=== PATIENT | female | born 1935 | race Caucasian/White ===

== ENCOUNTER 2016-05-12 20:19 | Inpatient (IN) | payer MEDICARE, OTHER ==
[2016-05-12] MEDS ORDERED: IPRATROPIUM/ALBUTEROL SULFATE 3 ML AMPUL.NEB NEB ONE (20:27)
[2016-05-12] MEDS ORDERED: 0.9 % SODIUM CHLORIDE 500 ML IV ONE (20:27)
[2016-05-12] MEDS ORDERED: methylPREDNISolone SOD SUCC 125 MG/2 ML VIAL IVP ONE (20:27)
[2016-05-12] MEDS: BUDESONIDE 0.5MG/2ML AMPUL.NEB NEB SCH (21:00)
[2016-05-12 21:12] LABS: BASOPHILS % 0.6 (0.0-1.5); LYMPHOCYTES # 2.1 # k/uL (0.6-4.0); MEAN CORPUSCULAR HEMOGLOBIN 32.9 pg (28.0-34.0); MONOCYTES # 0.4 # k/uL (0.0-0.9); MONOCYTES % 2.7 % (0.0-11.0); NEUTROPHILS # 13.5 # k/uL (1.4-7.7)
[2016-05-12 21:29] LABS: eGFR (African) 33; eGFR (Non-African) 27
--- NOTE | 2016-05-12 23:13 | Diagnostic Imaging Report ---
[facility] [id number] [facility].[address] [address] ~ ~ ~ ~ Report Submission Date: May 12, 2016 9:04:44 PM OCCUPATIONAL THERAPY ASST Patient ~ Study Name: JUSTIN GONZALEZ ~ Date: May 12, 2016 8:47:59 PM OCCUPATIONAL THERAPY ASST ~ Modality Type: CR Gender: F ~ Description: CHEST : 33 ~ Institution: [facility] Physician: DILCIA SIU ~ ~ ~ ~ Portable chest HISTORY: ~ Unresponsive and dyspnea FINDINGS: ~ Mild right basilar atelectasis, atherosclerotic aortic, hyperinflation, and calcified granulomas are observed. ~There is no evidence of confluent infiltrate or pleural effusion. ~Heart size is normal. ~ IMPRESSION: ~ Mild right basilar atelectasis, atherosclerosis, and hyperinflation. ~ Electronically signed on May 12, 2016 9:04:44 PM OCCUPATIONAL THERAPY ASST by: Corky REID
[2016-05-13 04:19] VITALS: BMI 15.7
[2016-05-13 06:10] LABS: APPEARANCE,URINE CLEAR (CLEAR); COLOR,URINE YELLOW (YELLOW); OCCULT BLOOD,URINE 3+ (NEGATIVE); PH URINE 6.5 (5.0 - 8.0); UROBILINOGEN URINE 0.2 Eu (0.2-1.0)
[2016-05-13] MEDS: IPRATROPIUM/ALBUTEROL SULFATE 3 ML AMPUL.NEB NEB SCH ×5 (07:30→21:45)
[2016-05-13] MEDS ORDERED: 0.9 % SODIUM CHLORIDE 1,000 ML IV SCH (07:30)
[2016-05-13] MEDS ORDERED: amLODIPine BESYLATE 5 MG TABLET PO ONE (07:36)
[2016-05-13] MEDS ORDERED: BISACODYL 5 MG TABLET.DR PO PRN (07:36)
[2016-05-13 07:51] LABS: MEAN CORPUSCULAR HEMOGLOBIN 32.5 pg (28.0-34.0)
[2016-05-13 07:52] LABS: BASOPHILS % 0.2 (0.0-1.5); EOSINOPHILS % 0.1 % (0.0-6.8); LYMPHOCYTES # 1.2 # k/uL (0.6-4.0); MONOCYTES # 0.1 # k/uL (0.0-0.9); MONOCYTES % 0.4 % (0.0-11.0); NEUTROPHILS # 11.8 # k/uL (1.4-7.7)
[2016-05-13] MEDS ORDERED: AZITHROMYCIN 500 MG in 0.9 % SODIUM CHLORIDE 250 ML IV SCH (08:00)
[2016-05-13] MEDS ORDERED: cefTRIAXone SODIUM 1 GM in 0.9 % SODIUM CHLORIDE 50 ML IV SCH (08:00)
[2016-05-13] MEDS ORDERED: methylPREDNISolone SOD SUCC 125 MG/2 ML VIAL ONE ×2 (08:09→15:46)
[2016-05-13] MEDS ORDERED: 0.9 % SODIUM CHLORIDE 250 ML IV ONE (08:09)
[2016-05-13] MEDS ORDERED: AZITHROMYCIN 500 MG VIAL IV ONE (08:09)
[2016-05-13] MEDS ORDERED: ENOXAPARIN SODIUM 30 MG/0.3 ML DISP.SYRIN SQ ONE (08:09)
[2016-05-13] MEDS ORDERED: SALINE FLUSH 10 ML DISP.SYRIN IVF ONE ×2 (08:10→15:46)
[2016-05-13] MEDS ORDERED: 0.9 % SODIUM CHLORIDE 1,000 ML IV ONE (08:14)
[2016-05-13] MEDS ORDERED: cefTRIAXone SODIUM ADVANTAGE 1 GM VIAL.PORT IV ONE (08:14)
[2016-05-13] MEDS ORDERED: NORMAL SALINE ADD-VANTAGE 50 ML IV ONE (08:14)
--- NOTE | 2016-05-13 08:18 | ED Physician Documentation ---
Dyspnea - HISTORIAN Historian: other ([facility] record) - HPI Stated Complaint: soa Chief Complaint: Dyspnea Onset: days ago (3) Duration: continues in ED Initiating Event: upper respiratory illness Context: infection Severity: moderate Exacerbated By: exertion Associated Symptoms: productive cough Further Comments: no - ROS CONST: no problems EYES/ENT: none GI/: none NEURO/PSYCH: denies: headache MS/SKIN/LYMPH: none - PAST HX Lung Disease: COPD Cardiac Disease: none PE Risk Factors: hypertension Other History: diabetes Type 2, other (anxiety) Immunizations: referred to PCP Allergies/Adverse Reactions: Allergies Allergy/AdvReac Type Severity Reaction Status Date / Time Penicillins Allergy Intermediate Verified 05/25/14 12:45 aspirin Allergy Verified 05/25/14 12:45 Home Medications: Ambulatory Orders Medication Instructions Recorded Acetaminophen [Tylenol] 650 mg PO Q4 05/03/12 Digoxin [Lanoxin] 125 mcg PO QD 05/03/12 Multivitamin [Bugs Bunny Vit Plus 1 each PO DAILY 05/03/12 Minerals] Bisacodyl [Dulcolax] 10 mg RC QD PRN 05/25/14 Blood Sugar Diagnostic, Drum 1 each MC BID 05/25/14 [Accu-Chek Compact Plus] Docusate Sodium [Colace] 1 cap PO BID 05/25/14 Ferrous Sulfate [Feosol] 325 mg PO BID 05/25/14 Insulin Glargine,Hum.rec.anlog 8 unit SQ HS 05/25/14 [Lantus] Opti-Vitamin [Ocuvite Tablet] 1 tab PO [id number] 05/25/14 Simvastatin [Zocor] 40 mg PO HS 05/25/14 Sodium Chloride 1,000 mg PO BID 05/25/14 amLODIPine BESYLATE [Norvasc] 5 mg PO 0900 05/25/14 Aspirin [Adult Low Dose Aspirin EC] 81 mg PO 05/13/16 Divalproex Sodium [Depakote 125 mg PO BID 05/13/16 Sprinkle] Megestrol Acetate [Megace] 10 ml PO TID 05/13/16 Ranitidine HCl [Zantac] 150 mg PO BID 05/13/16 - SOCIAL HX Smoking History: non-smoker Alcohol Use: none Drug Use: none - FAMILY HX Family History: no significant history - VITAL SIGNS Vital Signs: Vital Signs Temp Pulse Resp BP Pulse Ox 97.6 F 102 H 24 133/80 93 05/13/16 05:55 05/13/16 05:55 05/13/16 05:55 05/13/16 05:55 05/13/16 05:55 - REVIEWED ASSESSMENTS Nursing Assessment Reviewed: Yes Vitals Reviewed: Yes Progress - Results/Orders Results/Orders: see orders - Progress Progress: improved with nebulizer txs in er Critical Care Note - Critical Care Note Total Time (mins): 0 ED Results Lab/Radiology - Lab Results Lab Results: Lab Results 05/13/16 05/12/16 05/12/16 01:33 21:04 21:04 WBC RBC Hgb Hct MCV MCH MCHC RDW Plt Count Neut % (Auto) Lymph % (Auto) [place] % (Auto) Eos % (Auto) Baso % (Auto) Neut # Lymph # [place] # Eos # Baso # Reactive Lymphs % Reactive Lymphs # PT 11.2 Seconds Seconds (9.7-11.5) INR 1.1 (0.9-1.1) APTT 26.3 Seconds Seconds (24.5-32.8) Sodium Potassium Chloride Carbon Dioxide BUN Creatinine Est GFR ( Amer) Est GFR (Non-Af Amer) Glucose Calcium Total Bilirubin AST ALT Alkaline Phosphatase Troponin I 0.05 ng/mL ng/mL (0.03-0.06) NT-Pro-B Natriuret Pep 1188.9 pg/mL H pg/mL (15.0-450.0) Total Protein Albumin Urine Color Yellow (YELLOW) Urine Appearance Clear (CLEAR) Urine pH 6.5 (5.0 - 8.0) Ur Specific [place] 1.020 (1.010-1.030) Urine Protein 3+ mg/dL H mg/dL (NEGATIVE) Urine Ketones Trace mg/dL H mg/dL (NEGATIVE) Urine Occult Blood 3+ H (NEGATIVE) Urine Nitrite Positive H (NEGATIVE) Urine Bilirubin Negative (NEGATIVE) Urine Urobilinogen 0.2 Eu Eu (0.2-1.0) Ur Leukocyte Esterase Negative (NEGATIVE) Urine Glucose Negative mg/dL mg/dL (NEGATIVE) 05/12/16 05/12/16 20:28 20:28 WBC 16.50 K/ul H K/ul (4.00-12.00) RBC 3.54 M/ul L M/ul (3.90-5.20) Hgb 11.6 g/dL L g/dL (12.0-16.0) Hct 36.0 % % (34.5-46.5) MCV 101.8 fl H fl (80.0-100.0) MCH 32.9 pg pg (28.0-34.0) MCHC 32.3 g/dL g/dL (30.0-36.0) RDW 13.4 % % (11.3-14.3) Plt Count 397 K/mm3 K/mm3 (130-400) Neut % (Auto) 81.8 % H % (39.0-79.0) Lymph % (Auto) 12.9 % L % (16.0-50.0) [place] % (Auto) 2.7 % % (0.0-11.0) Eos % (Auto) 1.0 % % (0.0-6.8) Baso % (Auto) 0.6 (0.0-1.5) Neut # 13.5 # k/uL H # k/uL (1.4-7.7) Lymph # 2.1 # k/uL # k/uL (0.6-4.0) [place] # 0.4 # k/uL # k/uL (0.0-0.9) Eos # 0.2 # k/uL # k/uL (0.0-0.6) Baso # 0.1 # k/uL # k/uL (0.0-0.5) Reactive Lymphs % 1.0 % % (0.0-5.0) Reactive Lymphs # 0.2 # k/uL # k/uL (0.0-0.8) PT INR APTT Sodium 157 mmol/L H mmol/L (136-145) Potassium 3.4 mmol/L L mmol/L (3.5-5.0) Chloride 130 mmol/L H mmol/L (98-110) Carbon Dioxide 22 mmol/L mmol/L (20-32) BUN 46 mg/dL H mg/dL (10-26) Creatinine 1.9 mg/dL H mg/dL (0.4-1.5) Est GFR ( Amer) 33 L (60 - ) Est GFR (Non-Af Amer) 27 L (60 - ) Glucose 143 mg/dL H mg/dL (70-99) Calcium 11.5 mg/dL H mg/dL (8.5-10.5) Total Bilirubin 0.2 mg/dL mg/dL (0.2-1.2) AST 39 U/L U/L (0-41) ALT 42 U/L U/L (0-45) Alkaline Phosphatase 67 U/L U/L (46-116) Troponin I NT-Pro-B Natriuret Pep Total Protein 8.9 g/dL H g/dL (6.0-8.5) Albumin 4.3 g/dL g/dL (3.0-5.5) Urine Color Urine Appearance Urine pH Ur Specific [place] Urine Protein Urine Ketones Urine Occult Blood Urine Nitrite Urine Bilirubin Urine Urobilinogen Ur Leukocyte Esterase Urine Glucose - Radiology Radiology Impressions: cxr shows right basilar infiltrate - Orders Orders: ED Orders Category Date Time Status Activity as ordered D Care 05/13/16 07:36 Active Assess pulse oximetry Q1-2 Care 05/13/16 07:36 Active Continuous EKG monitoring Q1H Care 05/13/16 07:36 Active Document Bowel Movement Q8H Care 05/13/16 07:[address] Sanchez NOW Care 05/13/16 07:36 Ordered Dominguez [Urinary catheterization] 1T Care 05/12/16 23:06 Active Further Nursing Orders 1T Care 05/13/16 07:36 Active Inpatient Telemetry NOW Care 05/13/16 07:36 Ordered Obtain weight DAILY@0500 Care 05/13/16 07:36 Active Turn, Cough, and Deep Breathe Q2 Care 05/13/16 07:36 Active Vital Signs Q4 Care 05/13/16 07:36 Active No Concentrated Sweets Diet 05/13/16 Breakfast Ordered Regular Diet 05/13/16 Breakfast Ordered CHEST 1 VIEW [RAD] Routine Exams 05/12/16 Completed BLOOD CULTURE Routine Lab 05/12/16 20:28 Received BNP [NT-proBNP] Routine Lab 05/12/16 21:04 Completed CBC/PLATELET/DIFF Routine Lab 05/12/16 20:28 Completed CMP Routine Lab 05/12/16 20:28 Completed PT-INR Routine Lab 05/12/16 21:04 Completed PTT Routine Lab 05/12/16 21:04 Completed TROPONIN I (cTnI) Routine Lab 05/12/16 21:04 Completed 0.9 % Sodium Chloride [Normal Saline] 500 ml Med 05/12/16 20:27 Discontinued IV NOW Acetaminophen [Tylenol] Med 05/13/16 07:36 Ordered 650 mg PO Q6H PRN Azithromycin [Zithromax] 500 mg Med 05/13/16 07:36 Ordered 0.9 % Sodium Chloride [Sodium Chloride] 250 ml IV Q24H Bisacodyl [Dulcolax] Med 05/13/16 07:36 Ordered 10 mg PO DAILY PRN Budesonide [Pulmicort] Med 05/12/16 21:00 Ordered 0.5 mg NEB BID Budesonide [Pulmicort] Med 05/13/16 09:00 Ordered 0.5 mg NEB BID Buspirone HCl [Buspar] Med 05/13/16 09:00 Ordered 5 mg PO BID Cyclobenzaprine HCl [Flexeril] Med 05/13/16 09:00 Ordered 5 mg PO DAILY Digoxin [Lanoxin] Med 05/13/16 12:00 Ordered 125 mcg PO [id number] Docusate Sodium [Colace] Med 05/13/16 09:00 Ordered 100 mg PO BID Enoxaparin Sodium [Lovenox] Med 05/13/16 07:36 Ordered 30 mg SQ QD Ferrous Sulfate [Feosol] Med 05/13/16 11:00 Ordered 325 mg PO 1100 Ipratropium/Albuterol Sulfate [Duoneb] Med 05/12/16 20:27 Discontinued 3 ml NEB NOW ONE Ipratropium/Albuterol Sulfate [Duoneb] Med 05/13/16 07:36 Ordered 3 ml NEB Q4 Losartan Potassium [Cozaar] Med 05/13/16 09:00 Ordered 100 mg PO DAILY Magnesium Hydroxide [Milk of Magnesia] Med 05/13/16 09:00 Ordered 2,400 mg PO BID Metformin HCl [Glucophage] Med 05/13/16 07:36 Ordered 500 mg PO [id number] Multivitamin [Tab-A-Ermias] Med 05/13/16 09:00 Ordered 1 each PO DAILY Potassium Chloride [Klor-Con M20] Med 05/13/16 09:00 Ordered 20 meq PO BID Simvastatin [Zocor] Med 05/13/16 21:00 Ordered 40 mg PO HS Vit A,C & E/Lutein/Minerals [Ocuvite with Lutein Tablet Med 05/13/16 09:00 Ordered ] 1 each PO DAILY amLODIPine BESYLATE [Norvasc] Med 05/13/16 07:36 Once 5 mg PO NOW ONE cefTRIAXone SODIUM [Rocephin] 1 gm Med 05/13/16 07:36 Ordered 0.9 % Sodium Chloride [Sodium Chloride] 50 ml IV QD fentaNYL 12 MCG [Duragesic] Med 05/13/16 09:00 Ordered 1 each TD Q72 hydrOXYzine HCL [Vistaril] Med 05/13/16 09:00 Ordered 25 mg IM BID methylPREDNISolone SOD SUCC [Solu-MEDROL] Med 05/12/16 20:27 Discontinued 125 mg IVP NOW ONE methylPREDNISolone SOD SUCC [Solu-MEDROL] Med 05/13/16 09:00 Ordered 125 mg IVP Q12 Resuscitation Status Routine Oth 05/13/16 07:36 Ordered Oxygen Daily Oxygen 05/13/16 07:36 Ordered EKG WITH COMPARISON Routine Ther 05/12/16 Completed Transfer Routine Transfer 05/13/16 Completed Dyspnea Physical Exam - EXAM General Appearance: alert, moderate distress EENT: eye inspection normal, ENT inspection normal, pharynx normal, dry mucous membranes Neck: nml inspection Respiratory: respiratory distress, decreased air movement, rales CVS: reg. rate & rhythm Abdomen: non-tender, no organomegaly Skin: color nml, no rash Extremities: non-tender, normal range of motion, no evidence of injury Neuro/Psych: weakness Discharge Clincal Impression: Pneumonia Qualifiers: Pneumonia type: due to unspecified organism Laterality: right Lung location: lower lobe of lung Qualified Code(s): J18.1 - Lobar pneumonia, unspecified organism Home Medications: Ambulatory Orders Acetaminophen [Tylenol] 650 mg PO Q4 05/03/12 Digoxin [Lanoxin] 125 mcg PO QD 05/03/12 Multivitamin [Bugs Bunny Vit Plus Minerals] 1 each PO DAILY 05/03/12 Bisacodyl [Dulcolax] 10 mg RC QD PRN 05/25/14 Blood Sugar Diagnostic, Drum [Accu-Chek Compact Plus] 1 each MC BID 05/25/14 Docusate Sodium [Colace] 1 cap PO BID 05/25/14 Ferrous Sulfate [Feosol] 325 mg PO BID 05/25/14 Insulin Glargine,Hum.rec.anlog [Lantus] 8 unit SQ HS 05/25/14 Opti-Vitamin [Ocuvite Tablet] 1 tab PO [id number] 05/25/14 Simvastatin [Zocor] 40 mg PO HS 05/25/14 Sodium Chloride 1,000 mg PO BID 05/25/14 amLODIPine BESYLATE [Norvasc] 5 mg PO 0900 05/25/14 Aspirin [Adult Low Dose Aspirin EC] 81 mg PO 05/13/16 Divalproex Sodium [Depakote Sprinkle] 125 mg PO BID 05/13/16 Megestrol Acetate [Megace] 10 ml PO TID 05/13/16 Ranitidine HCl [Zantac] 150 mg PO BID 05/13/16 Comments: case discussed with Dr. Sanchez, accepts pt. for admission Condition: Stable Disposition: ADMITTED INPATIENT Decision to Admit: [id number] Decision Time: 02:10
[2016-05-13] MEDS: BUSPIRONE HCL 5 MG TABLET PO SCH ×2 (08:32→20:28)
[2016-05-13] MEDS: DOCUSATE SODIUM 100 MG CAPSULE PO SCH ×2 (08:32→20:28)
[2016-05-13] MEDS: MAGNESIUM HYDROXIDE 400 MG/5 ML 30ML UDC PO SCH ×2 (08:33→20:29)
[2016-05-13] MEDS: CYCLOBENZAPRINE HCL 5 MG TABLET PO SCH (08:33)
[2016-05-13] MEDS: ENOXAPARIN SODIUM 30 MG/0.3 ML DISP.SYRIN SQ SCH (08:33)
[2016-05-13] MEDS: POTASSIUM CHLORIDE 20 MEQ TABLET.ER PO SCH ×2 (08:33→20:28)
[2016-05-13] MEDS: LOSARTAN POTASSIUM 50 MG TABLET PO SCH (08:33)
[2016-05-13] MEDS: SALINE FLUSH 10 ML DISP.SYRIN IV SCH ×2 (08:34→20:29)
[2016-05-13] MEDS: BUDESONIDE 0.5MG/2ML AMPUL.NEB NEB SCH ×4 (08:35→21:48)
[2016-05-13] MEDS: [UNRECOGNIZED DRUG - OTHER] PO SCH (08:35)
[2016-05-13] MEDS: MULTIVITAMIN 1 EACH TABLET PO SCH (08:36)
[2016-05-13] MEDS: cefTRIAXone SODIUM 1 GM in 0.9 % SODIUM CHLORIDE 50 ML IV SCH (08:36)
[2016-05-13] MEDS: methylPREDNISolone SOD SUCC 125 MG/2 ML VIAL IVP SCH ×2 (09:00→21:48)
[2016-05-13] MEDS: AZITHROMYCIN 500 MG in 0.9 % SODIUM CHLORIDE 250 ML IV SCH (09:33)
[2016-05-13] MEDS: hydrOXYzine HCL 50 MG/ML VIAL IM SCH ×2 (09:40→20:30)
--- NOTE | 2016-05-13 09:56 | History and Physical Report ---
History of Present Illnes - History of Present Illness Reason for Visit: increase lethergy, dyspnea History of Present Illness: Patient is an 80-year-old white female [facility]. Over the last 48 hours patient has been taking and appeared to be having some increasing respiratory distress and lathery. Patient's SaO2 dropped down into the mid 80s and was difficult to get up over 90. Patient doesn't having some wheezing. Patient was having fever and chills. Was felt that patient may be developing pneumonia and was subsequently transferred to the ED. In the emergency department. Patient was felt to have an exacerbation of her COPD with possible bronchitis and was subsequently admitted to the hospital for further evaluation and treatment. - Past Medical History Cardiac: AFIB, HTN Pulmonary: COPD GENERAL SUPERVISOR: Dementia (alzheimer's) Gastrointestinal: Diverticulosis Heme/Onc: Anemia NOS Musculoskeletal: Chronic low back pain - Past Surgical History Past Surgical History: Hysterectomy, Other (BTL, lumbar disectomy, C section x 2 ) - Past Family History Mother Family History: (unknown) Father Family History: (unknown) - Past Social History Smoke: No Occupation: retired Alcohol: None Drugs: None Lives: Senior Care Domestic Violence: Negative - Health Maintenance Health Maintenance: Influenza Vaccine, Pneumococcal Vaccine. denies: Cholesterol Influenza Vaccine: Current for this Influenza Season Pneumonia Vaccine: Yes Resuscitation Status: Resusciation Status Resuscitation Status Do Not Resuscitate - Unable to Obtain History Unable to Obtain: Yes Review of Systems - Review of Systems Constitutional: Fever, Chills, Weakness Eyes: negative: pain, vision change ENT: negative: Ear Pain, Ear Discharge, Nose Discharge, Throat Swelling Respiratory: SOB with Excertion. negative: Cough, Shortness of Breath, Sputum, Wheezing Cardiovascular: negative: Chest Pain, Palpitations, Edema Gastrointestinal: negative: Nausea, Vomiting, Abdominal Pain, Diarrhea, Constipation, Melena, Hematochezia Genitourinary: Frequency, Incontinence. negative: Hematuria Musculoskeletal: Back Pain Skin: negative: Rash, Lesions Neurological: Other (increas lethergy). negative: Weakness, Numbness - Medications/Allergies Allergies/Adverse Reactions: Allergies Allergy/AdvReac Type Severity Reaction Status Date / Time Penicillins Allergy Intermediate Verified 05/25/14 12:45 aspirin Allergy Verified 05/25/14 12:45 Home Medications: Home Medications Aspirin [Adult Low Dose Aspirin EC] 81 mg PO 05/13/16 Divalproex Sodium [Depakote Sprinkle] 125 mg PO BID 05/13/16 Megestrol Acetate [Megace] 10 ml PO TID 05/13/16 Ranitidine HCl [Zantac] 150 mg PO BID 05/13/16 Current Inpatient Medications: Current Inpatient Medications Acetaminophen (Tylenol) 650 mg PO Q6H PRN PRN Reason: Fever >101 Al Hydroxide/Mg Hydroxide (Milk Of Magnesia) 2,400 mg PO BID [facility] Last Admin: 05/13/16 08:33 Dose: Not Given Albuterol/Ipratropium (Duoneb) 3 ml NEB Q4 [facility] Amlodipine Besylate (Norvasc) 5 mg PO NOW ONE Stop: 05/13/16 07:37 Last Admin: 05/13/16 08:35 Dose: Not Given Bisacodyl (Dulcolax) 10 mg PO DAILY PRN PRN Reason: Constipation Budesonide (Pulmicort) 0.5 mg NEB BID [facility] Last Admin: 05/12/16 21:00 Dose: 0.5 mg Budesonide (Pulmicort) 0.5 mg NEB BID [facility] Last Admin: 05/13/16 08:35 Dose: Not Given Buspirone HCl (Buspar) 5 mg PO BID [facility] Last Admin: 05/13/16 08:32 Dose: Not Given Cyclobenzaprine HCl (Flexeril) 5 mg PO DAILY [facility] Last Admin: 05/13/16 08:33 Dose: Not Given Digoxin (Lanoxin) 125 mcg PO [id number] [facility] Docusate Sodium (Colace) 100 mg PO BID [facility] Last Admin: 05/13/16 08:32 Dose: Not Given Enoxaparin Sodium (Lovenox) 30 mg SQ QD [facility] Stop: 05/26/16 07:37 Last Admin: 05/13/16 08:33 Dose: 30 mg Fentanyl (Duragesic) 1 each TD Q72 [facility] Ferrous Sulfate (Feosol) 325 mg PO 1100 [facility] Hydroxyzine HCl (Vistaril) 25 mg IM BID [facility] Last Admin: 05/13/16 09:40 Dose: 25 mg Sodium Chloride (Normal Saline) 1,000 mls @ 125 mls/hr IV .Q10H [facility] Azithromycin 500 mg/ Sodium (Chloride) 250 mls @ 125 mls/hr IV Q24H [facility] Stop: 05/23/16 07:35 Last Admin: 05/13/16 09:33 Dose: 125 mls/hr Ceftriaxone Sodium 1 gm/ (Sodium Chloride) 50 mls @ 100 mls/hr IV QD [facility] Last Admin: 05/13/16 08:36 Dose: 100 mls/hr Insulin Human Regular (Humulin R) 0 - 12 unit SQ CHEMQID [facility] PRN Reason: Protocol Losartan Potassium (Cozaar) 100 mg PO DAILY [facility] Last Admin: 05/13/16 08:33 Dose: Not Given Metformin HCl (Glucophage) 500 mg PO [id number] [facility] Last Admin: 05/13/16 08:32 Dose: Not Given Methylprednisolone Sodium Succinate (Solu-Medrol) 125 mg IVP Q12 [facility] Miscellaneous (Chem Sticks) 1 each MC CHEMQID [facility] Last Admin: 05/13/16 07:40 Dose: 1 each Miscellaneous (Chem Sticks) 1 each CHEMX2 [facility] Last Admin: 05/13/16 08:31 Dose: Not Given Multivitamins (Tab-A-Ermias) 1 each PO DAILY [facility] Last Admin: 05/13/16 08:36 Dose: Not Given Multivitamins/Minerals (Ocuvite With Lutein Tablet) 1 each PO DAILY [facility] Last Admin: 05/13/16 08:35 Dose: Not Given Potassium Chloride (Klor-Con M20) 20 meq PO BID [facility] Last Admin: 05/13/16 08:33 Dose: Not Given Simvastatin (Zocor) 40 mg PO HS [facility] Sodium Chloride (Normal Saline Flush) 3 ml IV BID [facility] Last Admin: 05/13/16 08:34 Dose: 3 ml Exam - Exam Vital Signs: Vital Signs (72 hours) 05/13/16 05/13/16 05/13/16 02:13 02:32 05:55 Temperature 97.7 F 97.6 F Pulse Rate [ 105 H 107 H 102 H Pulse ox] Respiratory 26 H 24 24 Rate Blood Pressure 153/82 143/87 133/80 [Left Arm] O2 Sat by Pulse 95 95 93 Oximetry General: No acute distress, Other (did open eyes to verbal stimuli). No: Alert , Oriented to Person, Oriented to Place, Oriented to Time, Cooperative HEENT: Atraumatic, Nose Mucous membr. moist/[place], Edentulous. No: Mouth Mucous membr. moist/[place] Neck: Normal Range of Motion. No: Stridor, Rigidity, Lymphadenopathy Carotids: WNL Thyroid: WNL Lungs: Clear to auscultation, Normal air movement, Speaks full Sentences, Respiratory Distress. No: Wheezes, Rales, Rhonchi Cardiovascular: Normal S1, Normal S2, Regularly Irregular, Atrial Fib (?) Murmur: Systolic Murmur Heart Murmur Grade: I Abdomen: Normal bowel sounds, Soft, No tenderness, No hepatospenomegaly, No masses. No: Distended Integumentary: Normal, [place], Warm, Dry Extremities: No clubbing, No cyanosis, No edema Neurological: Strength Equal Bilat, Normal tone, Sensation intact, Cranial nerves 3-12 NL. No: Normal speech Psych/Mental Status: No: Mental status NL, Mood NL, Appropriate Affect, Intact Judgment - Laboratory Results Laboratory Results: Laboratory Results 05/13/16 05/13/16 07:35 07:35 WBC 13.18 H RBC 3.42 L Hgb 11.1 L Hct 35.2 MCV 103.0 H MCH 32.5 MCHC 31.6 RDW 13.5 Plt Count 385 Neut % (Auto) 89.7 H Lymph % (Auto) 8.9 L [place] % (Auto) 0.4 Eos % (Auto) 0.1 Baso % (Auto) 0.2 Neut # 11.8 H Lymph # 1.2 [place] # 0.1 Eos # 0.0 Baso # 0.0 Reactive Lymphs % 0.7 Reactive Lymphs # 0.1 Sodium 159 H Potassium 3.7 Chloride 126 H Carbon Dioxide 22 BUN 56 H Creatinine 1.8 H Estimated Creat Clear 20 Est GFR ( Amer) 35 L Est GFR (Non-Af Amer) 29 L Glucose 224 H Calcium 10.4 Total Bilirubin 0.2 AST 61 H ALT 57 H Alkaline Phosphatase 65 Total Protein 8.5 Albumin 4.1 Assessment/Plan - Assessment/Plan (1) COPD exacerbation Status: Acute Current Visit: Yes Assessment: Patient will be started on IV steroids. Patient will be given high flow neb treatments. (2) Mental status change Status: Acute Current Visit: Yes Assessment: Patient was lethargic than baseline. Probably related to her current medical problems. (3) Alzheimer's dementia Status: Acute Current Visit: Yes Assessment: Stable we'll continue with home medication (4) Anemia Status: Chronic Current Visit: Yes Qualifiers: Anemia type: iron deficiency Assessment: Will monitor patient's hemoglobin and hematocrit (5) Atrial fibrillation Status: Chronic Current Visit: Yes Assessment: Appears to be stable at this time. We'll continue with current home medications. Rate is well controlled at this time. (6) Essential hypertension Status: Chronic Current Visit: Yes Assessment: We'll continue with home medications. VTE Assessment - RISK FACTOR SCORE VTE RISK FACTOR SCORES: AGE OVER 60 YEARS, ACUTE INFECTION OTHER THEN SEPSIS, ANTICIPATED BED CONFINEMENT OR IMMOBILIZATION > 24 HOURS
--- NOTE | 2016-05-13 13:10 | Diagnostic Imaging Report ---
[facility] [address] [facility] [address] [place], [place]. [address] ~ ~ ~ ~ Report Submission Date: May 13, 2016 8:21:44 AM MERCHANDISING REPRESENTATIVE Patient ~ Study Name: JUSTIN GONZALEZ ~ Date: May 13, 2016 7:58:55 AM MERCHANDISING REPRESENTATIVE ~ Modality Type: CR Gender: F ~ Description: CHEST : 34 ~ Institution: [facility] Physician: KEIKO AREVALO MD ~ ~ ~ ~ HISTORY: ~ 80-year-old female with chest congestion and fever. COMPARISON: Chest x-ray dated 05/12/2016. TECHNIQUE: Single portable AP view of the chest was performed. FINDINGS: No pneumothorax, new infiltrates, or pulmonary edema. ~The lungs are hyperexpanded. ~The heart is not enlarged. IMPRESSION: No acute intrathoracic process. ~ Electronically signed on May 13, 2016 8:21:44 AM MERCHANDISING REPRESENTATIVE by: Fortino REID
[2016-05-13] MEDS: FERROUS SULFATE 325 MG TABLET PO SCH (14:12)
[2016-05-13] MEDS: INSULIN REGULAR, HUMAN 100 UNIT/ML 3ML VIAL SQ SCH ×3 (14:12→20:34)
[2016-05-13] MEDS: DIGOXIN 125 MCG TABLET PO SCH (14:13)
[2016-05-13] MEDS: ACETAMINOPHEN 325 MG TABLET PO PRN (14:15)
[2016-05-13] MEDS: fentaNYL 12 MCG 1 EACH PATCH.TD72 TD SCH (16:43)
[2016-05-13] MEDS ORDERED: INSULIN REGULAR, HUMAN 100 UNIT/ML 3ML VIAL ONE (20:33)
[2016-05-13] MEDS: SIMVASTATIN 40 MG TABLET PO SCH (20:34)
[2016-05-14] MEDS: DEXTROSE 5 % IN WATER 1,000 ML IV SCH ×3 (02:03→17:20)
[2016-05-14] MEDS: IPRATROPIUM/ALBUTEROL SULFATE 3 ML AMPUL.NEB NEB SCH ×6 (04:33→21:57)
[2016-05-14] MEDS ORDERED: ENOXAPARIN SODIUM 30 MG/0.3 ML DISP.SYRIN SQ ONE (04:45)
[2016-05-14] MEDS ORDERED: SALINE FLUSH 10 ML DISP.SYRIN IVF ONE ×2 (04:46→07:44)
[2016-05-14] MEDS ORDERED: methylPREDNISolone SOD SUCC 125 MG/2 ML VIAL ONE (04:46)
[2016-05-14 06:53] LABS: BASOPHILS % 0.2 (0.0-1.5); EOSINOPHILS % 0.1 % (0.0-6.8); LYMPHOCYTES # 1.2 # k/uL (0.6-4.0); MEAN CORPUSCULAR HEMOGLOBIN 33.5 pg (28.0-34.0); MONOCYTES # 0.1 # k/uL (0.0-0.9); MONOCYTES % 0.9 % (0.0-11.0)
[2016-05-14] MEDS ORDERED: AZITHROMYCIN 500 MG VIAL IV ONE (08:06)
[2016-05-14] MEDS ORDERED: 0.9 % SODIUM CHLORIDE 250 ML IV ONE (08:06)
[2016-05-14] MEDS ORDERED: cefTRIAXone SODIUM ADVANTAGE 1 GM VIAL.PORT IV ONE (08:07)
[2016-05-14] MEDS ORDERED: NORMAL SALINE ADD-VANTAGE 50 ML IV ONE (08:07)
[2016-05-14] MEDS: CYCLOBENZAPRINE HCL 5 MG TABLET PO SCH (08:12)
[2016-05-14] MEDS: LOSARTAN POTASSIUM 50 MG TABLET PO SCH (08:12)
[2016-05-14] MEDS: POTASSIUM CHLORIDE 20 MEQ TABLET.ER PO SCH ×2 (08:12→21:07)
[2016-05-14] MEDS: DOCUSATE SODIUM 100 MG CAPSULE PO SCH ×2 (08:12→21:07)
[2016-05-14] MEDS: BUSPIRONE HCL 5 MG TABLET PO SCH ×2 (08:12→21:07)
[2016-05-14] MEDS: ENOXAPARIN SODIUM 30 MG/0.3 ML DISP.SYRIN SQ SCH (08:12)
[2016-05-14] MEDS: SALINE FLUSH 10 ML DISP.SYRIN IV SCH ×2 (08:13→21:08)
[2016-05-14] MEDS: [UNRECOGNIZED DRUG - OTHER] PO SCH (08:13)
[2016-05-14] MEDS: MAGNESIUM HYDROXIDE 400 MG/5 ML 30ML UDC PO SCH ×2 (08:13→21:07)
[2016-05-14] MEDS: cefTRIAXone SODIUM 1 GM in 0.9 % SODIUM CHLORIDE 50 ML IV SCH (08:14)
[2016-05-14] MEDS: hydrOXYzine HCL 50 MG/ML VIAL IM SCH ×2 (08:14→21:08)
[2016-05-14] MEDS: MULTIVITAMIN 1 EACH TABLET PO SCH (08:14)
[2016-05-14] MEDS: INSULIN REGULAR, HUMAN 100 UNIT/ML 3ML VIAL SQ SCH ×4 (08:16→21:12)
[2016-05-14] MEDS: methylPREDNISolone SOD SUCC 40 MG/ML VIAL IVP SCH ×2 (08:26→22:07)
[2016-05-14 08:31] LABS: DIGOXIN LEVEL 0.7 ng/mL (0.5-2.0); VALPROIC ACID LEVEL 3.6 ug/mL (50.0-100.0)
[2016-05-14] MEDS: BUDESONIDE 0.5MG/2ML AMPUL.NEB NEB SCH ×2 (09:00→22:08)
[2016-05-14] MEDS: FERROUS SULFATE 325 MG TABLET PO SCH (11:25)
[2016-05-14] MEDS: AZITHROMYCIN 500 MG in 0.9 % SODIUM CHLORIDE 250 ML IV SCH (11:26)
[2016-05-14] MEDS: DIGOXIN 125 MCG TABLET PO SCH (11:28)
--- NOTE | 2016-05-14 20:04 | Inpatient Progress Note ---
Subjective - Required Recertification Statement I anticipate X number of days because-include discharge plan: 2 days - Review of Systems Events since last encounter: patient is not as lethargic as she was yesterday. Patient is starting to take oral intake. Patient does not indicate that she's having any pain at this time. patient did run a low-grade fever 100.7 last night. Patient is afebrile at this time. Patient has had a mild productive sounding cough. Objective - Exam Vitals and I&O: Vital Signs Temp 97.3 F L 05/14/16 14:00 Pulse 73 05/14/16 18:00 Resp 18 05/14/16 14:00 BP 132/67 05/14/16 14:00 Pulse Ox 95 05/14/16 14:00 Intake & Output 05/13/16 05/14/16 05/14/16 23:59 11:59 23:59 Intake Total 330 420 Output Total 100 300 Balance 230 -300 420 Intake: Oral 330 420 Output: Urine 100 300 Other: Voiding Method Indwelling Catheter Indwelling Catheter # Bowel Movements 1 General: Alert (not at baseline), Cooperative, No acute distress. No: Oriented to Person, Oriented to Place, Oriented to Time Neck: Supple, No JVD Lungs: Normal air movement, Rales (R>L), Rhonchi (R>L) Cardiovascular: Normal S1, Normal S2, Irregularly Irregular Abdomen: Normal bowel sounds, Soft, No tenderness Skin: Normal, [place], Warm, Dry Neurological: Normal tone Psych/Mental Status: No: Mental status NL, Intact Judgment - Results Results: Laboratory Results WBC 15.60 K/ul (4.00-12.00) H 05/14/16 06:10 RBC 3.52 M/ul (3.90-5.20) L 05/14/16 06:10 Hgb 11.8 g/dL (12.0-16.0) L 05/14/16 06:10 Hct 36.5 % (34.5-46.5) 05/14/16 06:10 MCV 103.5 fl (80.0-100.0) H 05/14/16 06:10 MCH 33.5 pg (28.0-34.0) 05/14/16 06:10 MCHC 32.4 g/dL (30.0-36.0) 05/14/16 06:10 RDW 13.4 % (11.3-14.3) 05/14/16 06:10 Plt Count 468 K/mm3 (130-400) H 05/14/16 06:10 Neut % (Auto) 90.0 % (39.0-79.0) H 05/14/16 06:10 Lymph % (Auto) 8.0 % (16.0-50.0) L 05/14/16 06:10 [place] % (Auto) 0.9 % (0.0-11.0) 05/14/16 06:10 Eos % (Auto) 0.1 % (0.0-6.8) 05/14/16 06:10 Baso % (Auto) 0.2 (0.0-1.5) 05/14/16 06:10 Neut # 14.0 # k/uL (1.4-7.7) H 05/14/16 06:10 Lymph # 1.2 # k/uL (0.6-4.0) 05/14/16 06:10 [place] # 0.1 # k/uL (0.0-0.9) 05/14/16 06:10 Eos # 0.0 # k/uL (0.0-0.6) 05/14/16 06:10 Baso # 0.0 # k/uL (0.0-0.5) 05/14/16 06:10 Reactive Lymphs % 0.9 % (0.0-5.0) 05/14/16 06:10 Reactive Lymphs # 0.1 # k/uL (0.0-0.8) 05/14/16 06:10 PT 11.2 Seconds (9.7-11.5) 05/12/16 21:04 INR 1.1 (0.9-1.1) 05/12/16 21:04 APTT 26.3 Seconds (24.5-32.8) 05/12/16 21:04 Sodium 155 mmol/L (136-145) H 05/14/16 19:04 Potassium 3.8 mmol/L (3.5-5.0) 05/14/16 19:04 Chloride 130 mmol/L (98-110) H 05/14/16 19:04 Carbon Dioxide 18 mmol/L (20-32) L 05/14/16 19:04 BUN 84 mg/dL (10-26) H 05/14/16 19:04 Creatinine 2.3 mg/dL (0.4-1.5) H 05/14/16 19:04 Estimated Creat Clear 16 05/14/16 19:04 Est GFR ( Amer) 26 (60-) L 05/14/16 19:04 Est GFR (Non-Af Amer) 22 (60-) L 05/14/16 19:04 Glucose 422 mg/dL (70-99) H 05/14/16 19:04 Calcium 9.4 mg/dL (8.5-10.5) 05/14/16 19:04 Total Bilirubin 0.2 mg/dL (0.2-1.2) 05/14/16 06:10 AST 90 U/L (0-41) H 05/14/16 06:10 ALT 97 U/L (0-45) H 05/14/16 06:10 Alkaline Phosphatase 64 U/L (46-116) 05/14/16 06:10 Troponin I 0.05 ng/mL (0.03-0.06) 05/12/16 21:04 NT-Pro-B Natriuret Pep 1188.9 pg/mL (15.0-450.0) H 05/12/16 21:04 Total Protein 8.4 g/dL (6.0-8.5) 05/14/16 06:10 Albumin 4.0 g/dL (3.0-5.5) 05/14/16 06:10 Urine Color Yellow (YELLOW) 05/13/16 01:33 Urine Appearance Clear (CLEAR) 05/13/16 01:33 Urine pH 6.5 (5.0 - 8.0) 05/13/16 01:33 Ur Specific [place] 1.020 (1.010-1.030) 05/13/16 01:33 Urine Protein 3+ mg/dL (NEGATIVE) H 05/13/16 01:33 Urine Ketones Trace mg/dL (NEGATIVE) H 05/13/16 01:33 Urine Occult Blood 3+ (NEGATIVE) H 05/13/16 01:33 Urine Nitrite Positive (NEGATIVE) H 05/13/16 01:33 Urine Bilirubin Negative (NEGATIVE) 05/13/16 01:33 Urine Urobilinogen 0.2 Eu (0.2-1.0) 05/13/16 01:33 Ur Leukocyte Esterase Negative (NEGATIVE) 05/13/16 01:33 Urine Glucose Negative mg/dL (NEGATIVE) 05/13/16 01:33 Digoxin 0.7 ng/mL (0.5-2.0) 05/13/16 07:35 Valproic Acid 3.6 ug/mL (50.0-100.0) L 05/13/16 07:35 Assessment/Plan - Assessment/Plan (1) COPD exacerbation Status: Acute Current Visit: Yes Assessment: Patient breathing seems to be improving some. Leukocytosis probably related to steroids (2) Mental status change Status: Acute Current Visit: Yes Assessment: Improved but still not at baseline (3) Alzheimer's dementia Status: Acute Current Visit: Yes Assessment: stable (4) Anemia Status: Chronic Current Visit: Yes Qualifiers: Anemia type: iron deficiency Assessment: stable, Hgb 11.8 (5) Atrial fibrillation Status: Chronic Current Visit: Yes Assessment: stable, no RVR (6) Essential hypertension Status: Chronic Current Visit: Yes Assessment: table on home meds (7) Hypernatremia Status: Acute Current Visit: Yes Assessment: worse today. Patient's BUN and Creat are elevated more. I have switched to D5w at an increase rate to try to improve Na and dehydration. (8) Hyperglycemia Status: Acute Current Visit: Yes Assessment: related to steroids. some concern about low grade fever last noc. Will monitor.
[2016-05-14] MEDS ORDERED: SIMVASTATIN 20 MG TABLET ONE (20:07)
[2016-05-14] MEDS: SIMVASTATIN 40 MG TABLET PO SCH (21:10)
[2016-05-15] MEDS: DEXTROSE 5 % IN WATER 1,000 ML IV SCH ×5 (00:58→13:00)
[2016-05-15] MEDS: IPRATROPIUM/ALBUTEROL SULFATE 3 ML AMPUL.NEB NEB SCH ×6 (01:30→21:45)
[2016-05-15] MEDS ORDERED: ENOXAPARIN SODIUM 30 MG/0.3 ML DISP.SYRIN SQ ONE (04:24)
[2016-05-15 07:26] LABS: BASOPHILS % 0.1 (0.0-1.5); LYMPHOCYTES # 1.1 # k/uL (0.6-4.0); MEAN CORPUSCULAR HEMOGLOBIN 32.7 pg (28.0-34.0); MONOCYTES # 0.1 # k/uL (0.0-0.9); MONOCYTES % 0.9 % (0.0-11.0); NEUTROPHILS # 13.1 # k/uL (1.4-7.7)
[2016-05-15] MEDS: INSULIN REGULAR, HUMAN 100 UNIT/ML 3ML VIAL SQ SCH ×4 (07:45→20:52)
[2016-05-15] MEDS: ENOXAPARIN SODIUM 30 MG/0.3 ML DISP.SYRIN SQ SCH ×2 (07:47→09:53)
[2016-05-15] MEDS: BUDESONIDE 0.5MG/2ML AMPUL.NEB NEB SCH ×2 (09:10→21:46)
[2016-05-15] MEDS ORDERED: 0.9 % SODIUM CHLORIDE 100 ML IV ONE (09:16)
[2016-05-15] MEDS ORDERED: AZITHROMYCIN 500 MG VIAL IV ONE (09:16)
[2016-05-15] MEDS ORDERED: 0.9 % SODIUM CHLORIDE 250 ML IV ONE (09:16)
[2016-05-15] MEDS ORDERED: cefTRIAXone SODIUM 1 GM VIAL ONE (09:16)
[2016-05-15] MEDS: AZITHROMYCIN 500 MG in 0.9 % SODIUM CHLORIDE 250 ML IV SCH (09:31)
[2016-05-15] MEDS: CYCLOBENZAPRINE HCL 5 MG TABLET PO SCH (09:53)
[2016-05-15] MEDS: MAGNESIUM HYDROXIDE 400 MG/5 ML 30ML UDC PO SCH ×2 (09:53→20:46)
[2016-05-15] MEDS: MULTIVITAMIN 1 EACH TABLET PO SCH (09:53)
[2016-05-15] MEDS: POTASSIUM CHLORIDE 20 MEQ TABLET.ER PO SCH ×2 (09:53→20:45)
[2016-05-15] MEDS: [UNRECOGNIZED DRUG - OTHER] PO SCH (09:54)
[2016-05-15] MEDS: LOSARTAN POTASSIUM 50 MG TABLET PO SCH (09:54)
[2016-05-15] MEDS: DOCUSATE SODIUM 100 MG CAPSULE PO SCH ×2 (09:54→20:45)
[2016-05-15] MEDS: FERROUS SULFATE 325 MG TABLET PO SCH (09:54)
[2016-05-15] MEDS: BUSPIRONE HCL 5 MG TABLET PO SCH ×2 (09:55→20:44)
[2016-05-15] MEDS: ACETAMINOPHEN 325 MG TABLET PO PRN (09:55)
[2016-05-15] MEDS: methylPREDNISolone SOD SUCC 40 MG/ML VIAL IVP SCH ×2 (09:56→21:38)
[2016-05-15] MEDS: hydrOXYzine HCL 50 MG/ML VIAL IM SCH ×2 (09:57→21:38)
[2016-05-15] MEDS: cefTRIAXone SODIUM 1 GM in 0.9 % SODIUM CHLORIDE 50 ML IV SCH ×2 (10:33→12:06)
[2016-05-15] MEDS: SALINE FLUSH 10 ML DISP.SYRIN IV SCH (10:33)
[2016-05-15] MEDS: DIGOXIN 125 MCG TABLET PO SCH (12:17)
[2016-05-15] MEDS ORDERED: LEVOFLOXACIN 500MG/D5W 100ML 100 ML IV ONE (12:54)
[2016-05-15] MEDS: LEVOFLOXACIN 500MG/D5W 100ML 500 MG in PREMIX BAG 1 BAG IV SCH (13:04)
--- NOTE | 2016-05-15 13:41 | Diagnostic Imaging Report ---
[facility] [address] [facility] [address] [address] Report Submission Date: May 15, 2016 6:29:07 AM CONVEYOR MAN Patient Study Name: JUSTIN GONZALEZ Date: May 15, 2016 6:22:46 AM CONVEYOR MAN Modality Type: CR Gender: F Description: CHEST : 33 Institution: [facility] Physician: KEIKO AREVALO Chest - one-view Clinical history: Dyspnea. Findings: Examination of the chest single portable AP view 05/15/2016 0622 hours with comparison to examination of 05/13/2016 demonstrates discoid changes in the right lung base. The left lung is clear. Cardiovascular and mediastinal silhouettes are stable. The aorta is atherosclerotic. Monitor leads superimpose the chest. Impression: 1. Right basilar atelectasis. 2. Aortic atherosclerosis. Electronically signed on May 15, 2016 6:29:07 AM CONVEYOR MAN by: Khalif REID
[2016-05-15] MEDS: SIMVASTATIN 40 MG TABLET PO SCH (20:45)
[2016-05-15] MEDS: SALINE FLUSH 10 ML DISP.SYRIN IVF SCH (21:48)
[2016-05-16] MEDS: IPRATROPIUM/ALBUTEROL SULFATE 3 ML AMPUL.NEB NEB SCH ×5 (01:23→17:13)
[2016-05-16] MEDS: DEXTROSE 5 % IN WATER 1,000 ML IV SCH ×3 (01:44→16:48)
--- NOTE | 2016-05-16 07:12 | Inpatient Progress Note ---
Subjective - Required Recertification Statement I anticipate X number of days because-include discharge plan: 2 days - Review of Systems Events since last encounter: Patient is more mentally alert today. Is taking oral intake some better Cardiovascular: Denies: Chest Pain Gastrointestinal: Denies: Nausea, Vomiting Objective - Exam Vitals and I&O: Vital Signs Temp 98.9 F 05/16/16 06:00 Pulse 115 H 05/16/16 06:00 Resp 24 05/16/16 06:00 BP 165/75 05/16/16 06:00 Pulse Ox 91 L 05/16/16 06:00 Intake & Output 05/15/16 05/15/16 05/16/16 11:59 23:59 11:59 Intake Total 1120 200 960 Output Total 500 1450 Balance 620 -1250 960 Weight 45.813 kg Intake: IV 1000 900 Right Forearm 1000 Right upperarm 900 Oral 120 200 60 Output: Urine 500 1450 Other: Voiding Method Indwelling Catheter Indwelling Catheter # Voids 1,050 # Bowel Movements 0 0 General: Alert, Cooperative. No: Oriented to Person, Oriented to Place, Oriented to Time Neck: Supple, No JVD - Results Results: Laboratory Results WBC 14.50 K/ul (4.00-12.00) H 05/15/16 06:35 RBC 3.19 M/ul (3.90-5.20) L 05/15/16 06:35 Hgb 10.4 g/dL (12.0-16.0) L 05/15/16 06:35 Hct 34.0 % (34.5-46.5) L 05/15/16 06:35 MCV 106.7 fl (80.0-100.0) H 05/15/16 06:35 MCH 32.7 pg (28.0-34.0) 05/15/16 06:35 MCHC 30.6 g/dL (30.0-36.0) 05/15/16 06:35 RDW 13.3 % (11.3-14.3) 05/15/16 06:35 Plt Count 332 K/mm3 (130-400) 05/15/16 06:35 Neut % (Auto) 90.7 % (39.0-79.0) H 05/15/16 06:35 Lymph % (Auto) 7.4 % (16.0-50.0) L 05/15/16 06:35 [place] % (Auto) 0.9 % (0.0-11.0) 05/15/16 06:35 Eos % (Auto) 0.0 % (0.0-6.8) 05/15/16 06:35 Baso % (Auto) 0.1 (0.0-1.5) 05/15/16 06:35 Neut # 13.1 # k/uL (1.4-7.7) H 05/15/16 06:35 Lymph # 1.1 # k/uL (0.6-4.0) 05/15/16 06:35 [place] # 0.1 # k/uL (0.0-0.9) 05/15/16 06:35 Eos # 0.0 # k/uL (0.0-0.6) 05/15/16 06:35 Baso # 0.0 # k/uL (0.0-0.5) 05/15/16 06:35 Reactive Lymphs % 0.8 % (0.0-5.0) 05/15/16 06:35 Reactive Lymphs # 0.1 # k/uL (0.0-0.8) 05/15/16 06:35 PT 11.2 Seconds (9.7-11.5) 05/12/16 21:04 INR 1.1 (0.9-1.1) 05/12/16 21:04 APTT 26.3 Seconds (24.5-32.8) 05/12/16 21:04 Sodium 149 mmol/L (136-145) H 05/15/16 06:35 Potassium 3.8 mmol/L (3.5-5.0) 05/15/16 06:35 Chloride 121 mmol/L (98-110) H 05/15/16 06:35 Carbon Dioxide 18 mmol/L (20-32) L 05/15/16 06:35 BUN 58 mg/dL (10-26) H 05/15/16 06:35 Creatinine 1.8 mg/dL (0.4-1.5) H 05/15/16 06:35 Estimated Creat Clear 20 05/15/16 06:35 Est GFR ( Amer) 35 (60-) L 05/15/16 06:35 Est GFR (Non-Af Amer) 29 (60-) L 05/15/16 06:35 Glucose 420 mg/dL (70-99) H 05/15/16 06:35 Calcium 9.3 mg/dL (8.5-10.5) 05/15/16 06:35 Total Bilirubin 0.2 mg/dL (0.2-1.2) 05/14/16 06:10 AST 90 U/L (0-41) H 05/14/16 06:10 ALT 97 U/L (0-45) H 05/14/16 06:10 Alkaline Phosphatase 64 U/L (46-116) 05/14/16 06:10 Troponin I 0.05 ng/mL (0.03-0.06) 05/12/16 21:04 NT-Pro-B Natriuret Pep 1188.9 pg/mL (15.0-450.0) H 05/12/16 21:04 Total Protein 8.4 g/dL (6.0-8.5) 05/14/16 06:10 Albumin 4.0 g/dL (3.0-5.5) 05/14/16 06:10 Urine Color Yellow (YELLOW) 05/13/16 01:33 Urine Appearance Clear (CLEAR) 05/13/16 01:33 Urine pH 6.5 (5.0 - 8.0) 05/13/16 01:33 Ur Specific [place] 1.020 (1.010-1.030) 05/13/16 01:33 Urine Protein 3+ mg/dL (NEGATIVE) H 05/13/16 01:33 Urine Ketones Trace mg/dL (NEGATIVE) H 05/13/16 01:33 Urine Occult Blood 3+ (NEGATIVE) H 05/13/16 01:33 Urine Nitrite Positive (NEGATIVE) H 05/13/16 01:33 Urine Bilirubin Negative (NEGATIVE) 05/13/16 01:33 Urine Urobilinogen 0.2 Eu (0.2-1.0) 05/13/16 01:33 Ur Leukocyte Esterase Negative (NEGATIVE) 05/13/16 01:33 Urine Glucose Negative mg/dL (NEGATIVE) 05/13/16 01:33 Digoxin 0.7 ng/mL (0.5-2.0) 05/13/16 07:35 Valproic Acid 3.6 ug/mL (50.0-100.0) L 05/13/16 07:35 Assessment/Plan - Assessment/Plan (1) COPD exacerbation Status: Acute Current Visit: Yes Assessment: stable to improving, SAO2 greater then 90% (2) Mental status change Status: Acute Current Visit: Yes Assessment: improved over admission (3) Alzheimer's dementia Status: Acute Current Visit: Yes Assessment: stable (4) Anemia Status: Chronic Current Visit: Yes Qualifiers: Anemia type: iron deficiency Assessment: stable (5) Atrial fibrillation Status: Chronic Current Visit: Yes Assessment: no RVR (6) Essential hypertension Status: Chronic Current Visit: Yes (7) Hypernatremia Status: Acute Current Visit: Yes Assessment: improved, Na is down to 149 (8) Hyperglycemia Status: Acute Current Visit: Yes Assessment: related to D5W, will adjust insulin
[2016-05-16] MEDS: INSULIN REGULAR, HUMAN 100 UNIT/ML 3ML VIAL SQ SCH ×6 (07:14→17:52)
[2016-05-16] MEDS: BUDESONIDE 0.5MG/2ML AMPUL.NEB NEB SCH (09:06)
[2016-05-16 09:27] LABS: BASOPHILS % 0.2 (0.0-1.5); LYMPHOCYTES # 1.2 # k/uL (0.6-4.0); MONOCYTES # 0.2 # k/uL (0.0-0.9); MONOCYTES % 1.5 % (0.0-11.0); NEUTROPHILS # 10.7 # k/uL (1.4-7.7)
[2016-05-16] MEDS: BUSPIRONE HCL 5 MG TABLET PO SCH (09:48)
[2016-05-16] MEDS: fentaNYL 12 MCG 1 EACH PATCH.TD72 TD SCH (09:49)
[2016-05-16] MEDS: LOSARTAN POTASSIUM 50 MG TABLET PO SCH (09:49)
[2016-05-16] MEDS: DOCUSATE SODIUM 100 MG CAPSULE PO SCH (09:49)
[2016-05-16] MEDS: CYCLOBENZAPRINE HCL 5 MG TABLET PO SCH (09:50)
[2016-05-16] MEDS: POTASSIUM CHLORIDE 20 MEQ TABLET.ER PO SCH (09:50)
[2016-05-16] MEDS: [UNRECOGNIZED DRUG - OTHER] PO SCH (09:51)
[2016-05-16] MEDS: MAGNESIUM HYDROXIDE 400 MG/5 ML 30ML UDC PO SCH (09:51)
[2016-05-16] MEDS: hydrOXYzine HCL 50 MG/ML VIAL IM SCH (09:52)
[2016-05-16] MEDS: MULTIVITAMIN 1 EACH TABLET PO SCH (09:52)
[2016-05-16] MEDS: cefTRIAXone SODIUM 1 GM in 0.9 % SODIUM CHLORIDE 50 ML IV SCH (10:27)
[2016-05-16] MEDS ORDERED: LEVOFLOXACIN 500MG/D5W 100ML 100 ML IV ONE (10:55)
[2016-05-16] MEDS: ENOXAPARIN SODIUM 30 MG/0.3 ML DISP.SYRIN SQ SCH (11:04)
[2016-05-16] MEDS: LEVOFLOXACIN 500MG/D5W 100ML 500 MG in PREMIX BAG 1 BAG IV SCH (11:04)
[2016-05-16] MEDS: methylPREDNISolone SOD SUCC 40 MG/ML VIAL IVP SCH (11:25)
[2016-05-16] MEDS: FERROUS SULFATE 325 MG TABLET PO SCH (12:24)
[2016-05-16] MEDS: DIGOXIN 125 MCG TABLET PO SCH (12:24)
[2016-05-16 13:56] VITALS: BP 125/63
[2016-05-16] MEDS: SALINE FLUSH 10 ML DISP.SYRIN IVF SCH (16:42)
--- NOTE | 2016-07-08 09:57 | Discharge Summary ---
Discharge Summary - Discharge Sumary History of Present Illness: Patient is an 80-year-old white female from [facility]. 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 Patient's SaO2 dropped down into the mid 80s and was difficult to get up over 90. Patient did not have any wheezing. Patient was having fever and chills. Was felt that patient may be developing pneumonia and was subsequently transferred to the ED. In the emergency department. Patient was felt to have an exacerbation of her COPD with possible bronchitis and was subsequently admitted to the hospital for further evaluation and treatment. Condition at Discharge: Stable Home Medications: Ambulatory Orders Medication Instructions Recorded Acetaminophen [Tylenol] 650 mg PO Q4 05/03/12 Digoxin [Lanoxin] 125 mcg PO QD 05/03/12 Multivitamin [Bugs Bunny Vit Plus 1 each PO DAILY 05/03/12 Minerals] Bisacodyl [Dulcolax] 10 mg RC QD PRN 05/25/14 Blood Sugar Diagnostic, Drum 1 each MC BID 05/25/14 [Accu-Chek Compact Plus] Docusate Sodium [Colace] 1 cap PO BID 05/25/14 Ferrous Sulfate [Feosol] 325 mg PO BID 05/25/14 Insulin Glargine,Hum.rec.anlog 8 unit SQ HS 05/25/14 [Lantus] amLODIPine BESYLATE [Norvasc] 5 mg PO 0900 05/25/14 Aspirin [Adult Low Dose Aspirin EC] 81 mg PO 05/13/16 Divalproex Sodium [Depakote 125 mg PO BID 05/13/16 Sprinkle] Megestrol Acetate [Megace] 10 ml PO TID 05/13/16 Ipratropium/Albuterol Sulfate 3 ml NEB Q4 PRN ampul.neb 05/16/16 [Duoneb] Levofloxacin [Levaquin] 500 mg PO D #4 tablet 05/16/16 Magnesium Hydroxide [Milk of 2,400 mg PO BID unit dose cup 05/16/16 Magnesia] Consultations this Visit: None Procedures this Visit: None Allergies/Adverse Reactions: Allergies Allergy/AdvReac Type Severity Reaction Status Date / Time Penicillins Allergy Intermediate Verified 05/25/14 12:45 aspirin Allergy Verified 02/09/15 12:45 Discharge Summary: Patient was felt to be having an exacerbation of her COPD. Patient was started on high flow nebulization treatments with DuoNeb. Patient was also started on IV steroids. Chest x-ray did not show any pneumonia or evidence of congestive heart failure. Patient did have a productive sounding cough. It was felt that he possibly may have a bronchitis or aspiration pneumonia and was started on azithromycin and ceftriaxone. Patient cough initially did not improve and the ceftriaxone was discontinued and patient was started on Levaquin. Patient breathing status did slowly improve. Patient continued to have a leukocytosis felt to poosibly be due to bronchitis or spiration. Patient did have some hypernatremia. Sodium on admission was 159. At the time of discharge it was 142. Patient did have some hyperglycemia with glucose running in the 204 100s. Patient was started on sliding scale insulin. Patient's atrial fibrillation remained stable. Patient remained stable with an anemia. Hemoglobin was 10.5. At the time of discharge. Patient did have some chronic kidney disease which remained stable. Patient did have some elevated liver function tests felt to possibly be related to fatty liver disease. At the time of dismissal patient was improved, stable. It was felt that we can further manage her at the custodial. Patient was discharged in stable condition. - Final Diagnosis (1) COPD exacerbation Problems: improved (2) Mental status change Problems: improved and close to baseline (3) Alzheimer's dementia Problems: stable (4) Anemia Problems: Stable, Hgb 10.2 (6) Essential hypertension Problems: Stable. We'll continue with home medication (8) Hyperglycemia Problems: It is hoped that the hyperglycemia will improve once the patient is off of steroids. (9) CRD (chronic renal disease), stage IV Problems: stable
== END 2016-05-16 18:40 | DRG 191 ==
LOC: ED 20:19 → SOUTH 05-13 02:07
PROVIDERS: ADMIT Emergency Medicine; ATTEND Family Medicine
DX: J44.1 Chronic obstructive pulmonary disease with (acute) exacerbation (principal); N18.4 Chronic kidney disease, stage 4 (severe); R41.0 Disorientation, unspecified; G30.9 Alzheimer's disease, unspecified; F02.80 Dementia in other diseases classified elsewhere, unspecified severity, without behavioral disturbance, psychotic disturbance, mood disturbance, and anxiety; D64.9 Anemia, unspecified; R73.9 Hyperglycemia, unspecified; I12.9 Hypertensive chronic kidney disease with stage 1 through stage 4 chronic kidney disease, or unspecified chronic kidney disease
CPT/HCPCS: 36415; 51702; 71010; 80048; 80053; 80162; 80164; 81002; 83880; 84484; 85025; 85610; 85730; 87040; 87186; 94640; 94760; 99222; 99232; 99238; 99284; J0456; J0696; J1650; J1956; J2920; J2930; J3410; J7050; J7060; J7626; A9270; J1030; J1815; J7030; J7070; S1016

== ENCOUNTER 2016-12-15 13:24 | Inpatient (IN) | payer MEDICARE, OTHER ==
[2016-12-15] MEDS ORDERED: FUROSEMIDE 40 MG/4 ML VIAL ONE (13:47)
[2016-12-15] MEDS ORDERED: SALINE FLUSH 10 ML DISP.SYRIN IVF ONE (13:47)
--- NOTE | 2016-12-15 13:47 | Diagnostic Imaging Report ---
[facility] [address] [facility].[address] [address] Report Submission Date: Dec 15, 2016 1:45:34 PM CDT Patient Study Name: JUSTIN GONZALEZ Date: Dec 15, 2016 1:25:56 PM CDT Modality Type: CR Gender: F Description: CHEST : 33 Institution: [facility] Physician: [facility]MED [facility]G Examination: Portable chest History: Chest discomfort Comparison exam: 15 May 2016 Findings: Single view of the chest demonstrates prominent cardiac silhouette. Tortuosity of thoracic aorta with vascular calcifications involving the aortic arch. Continued perihilar parenchymal infiltrates. Increased infiltrates inferior right hilar region. No obvious blunting of the right costophrenic margin. Minimal blunting of the left costophrenic margin. Osseous structures are appropriate for age. Impression: Chronic appearing interstitial changes. Slightly increased infiltrates right inferior hilum. Correlate clinically. Electronically signed on Dec 15, 2016 1:45:34 PM CDT by: Tu REID
[2016-12-15] MEDS ORDERED: FUROSEMIDE 40 MG/4 ML VIAL IVP ONE (14:08)
[2016-12-15 14:14] LABS: BASOPHILS % 0.7 (0.0-1.5); EOSINOPHILS % 0.2 % (0.0-6.8); MEAN CORPUSCULAR HEMOGLOBIN 33.9 pg (28.0-34.0); MEAN CORPUSCULAR VOLUME 105.6 fl (80.0-100.0); MONOCYTES % 2.2 % (0.0-11.0); NEUTROPHILS # 9.3 # k/uL (1.4-7.7)
[2016-12-15 14:23] LABS: eGFR (African) 43; eGFR (Non-African) 35
[2016-12-15 14:23] LABS: APPEARANCE,URINE Clear (CLEAR); COLOR,URINE Yellow (YELLOW); OCCULT BLOOD,URINE 2+ (NEGATIVE); PH URINE 5.5 (5.0 - 8.0); UROBILINOGEN URINE 0.2 Eu (0.2-1.0)
[2016-12-15 14:30] LABS: AMORPHOUS SEDIMENT,UR FEW (NEGATIVE)
[2016-12-15] MEDS: IPRATROPIUM/ALBUTEROL SULFATE 3 ML AMPUL.NEB NEB SCH ×3 (14:37→20:19)
[2016-12-15] MEDS: cefTRIAXone SODIUM 1 GM in 0.9 % SODIUM CHLORIDE 50 ML IV SCH (15:28)
[2016-12-15] MEDS: AZITHROMYCIN 500 MG in 0.9 % SODIUM CHLORIDE 250 ML IV SCH (18:20)
[2016-12-15 18:30] VITALS: BMI 17.7
[2016-12-15] MEDS: ENOXAPARIN SODIUM 30 MG/0.3 ML DISP.SYRIN SQ SCH (20:19)
[2016-12-15] MEDS: SALINE FLUSH 10 ML DISP.SYRIN IV SCH (20:27)
[2016-12-16] MEDS: IPRATROPIUM/ALBUTEROL SULFATE 3 ML AMPUL.NEB NEB SCH ×6 (04:42→21:15)
[2016-12-16] MEDS ORDERED: MORPHINE 20 MG/ML PO PRN (07:34)
[2016-12-16] MEDS ORDERED: DEXTROSE 5 % IN WATER 1,000 ML IV ONE ×2 (07:56→19:35)
--- NOTE | 2016-12-16 07:56 | History and Physical Report ---
History of Present Illnes - History of Present Illness Reason for Visit: dyspnea History of Present Illness: Patient is an 81-year-old white female who resides at [facility]. Patient does have an states dementia. Patient does have a history of COPD. On the morning of admission patient was noted to have some sudden onset of increasing shortness of breath and pulmonary congestion. Patient had some audible course bronchitis. Patient was started on supplemental oxygen therapy. Patient NIGEL to continue to be in the low to mid 80 range. Patient appeared to be in respiratory distress and was subsequently admitted to the hospital for further care and evaluation. It was felt that the patient probably had an aspiration episode. Patient did seem to be doing well the evening before. 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 denies: Cholesterol Influenza Vaccine: No Pneumonia Vaccine: Yes Resuscitation Status: Resusciation Status Resuscitation Status Do Not Resuscitate Review of Systems - Review of Systems Constitutional: Fever (low grade). negative: Chills, Sweats, Weakness Eyes: other (unable to obtain) ENT: negative: Ear Discharge, Nose Discharge, Nose Congestion, Throat Pain, Throat Swelling Respiratory: Cough (weak, productive), Shortness of Breath, SOB with Excertion, Wheezing. negative: Hemoptysis, Pleuritic Pain Cardiovascular: Palpitations Gastrointestinal: negative: Abdominal Pain, Diarrhea, Constipation, Melena, Hematochezia Genitourinary: Incontinence. negative: Frequency Musculoskeletal: Other (unable to obtain) Skin: negative: Rash, Lesions Neurological: negative: Weakness, Numbness - Medications/Allergies Allergies/Adverse Reactions: Allergies Allergy/AdvReac Type Severity Reaction Status Date / Time Penicillins Allergy Intermediate Verified 05/25/14 12:45 aspirin Allergy Verified 05/25/14 12:45 Current Inpatient Medications: Current Inpatient Medications Albuterol/Ipratropium (Duoneb) 3 ml NEB Q4 [facility] Last Admin: 12/16/16 05:50 Dose: 3 ml Enoxaparin Sodium (Lovenox) 30 mg SQ QD [facility] Stop: 12/28/16 15:01 Last Admin: 12/15/16 20:19 Dose: 30 mg Azithromycin 500 mg/ Sodium (Chloride) 250 mls @ 125 mls/hr IV Q24H [facility] Stop: 12/20/16 14:59 Last Admin: 12/15/16 18:20 Dose: 125 mls/hr Ceftriaxone Sodium 1 gm/ (Sodium Chloride) 50 mls @ 100 mls/hr IV QD [facility] Last Admin: 12/15/16 15:28 Dose: 100 mls/hr Morphine Sulfate (Morphine Sulfate) 0 mg PO Q2 PRN PRN Reason: PAIN Sodium Chloride (Normal Saline Flush) 3 ml IV BID [facility] Last Admin: 12/15/16 20:27 Dose: 3 ml Exam - Exam Vital Signs: Vital Signs (72 hours) 12/15/16 12/15/16 12/15/16 13:30 14:10 14:40 Temperature 99.9 F H Pulse Rate 120 H 126 H Pulse Rate [ 126 H Apical] Pulse Rate [ 126 H Pulse ox] Respiratory 40 H Rate Blood Pressure 112/61 [Left Arm] Blood Pressure [Right Arm] O2 Sat by Pulse 84 L Oximetry 12/15/16 12/15/16 12/15/16 16:56 17:30 18:00 Temperature 99.8 F H Pulse Rate 122 H Pulse Rate [ 129 H 129 H Apical] Pulse Rate [ 126 H Pulse ox] Respiratory 40 H 40 H Rate Blood Pressure [Left Arm] Blood Pressure 108/62 [Right Arm] O2 Sat by Pulse 86 L Oximetry 12/15/16 12/15/16 12/15/16 18:56 20:00 21:00 Temperature Pulse Rate 129 H 128 H Pulse Rate [ Apical] Pulse Rate [ 127 H Pulse ox] Respiratory 36 H Rate Blood Pressure [Left Arm] Blood Pressure [Right Arm] O2 Sat by Pulse Oximetry 12/15/16 12/15/16 12/16/16 21:44 23:52 02:00 Temperature 98.8 F 99.1 F Pulse Rate 127 H 131 H 129 H Pulse Rate [ Apical] Pulse Rate [ 127 H 129 H Pulse ox] Respiratory 36 H 26 H Rate Blood Pressure 115/56 81/52 [Left Arm] Blood Pressure [Right Arm] O2 Sat by Pulse 88 L 95 Oximetry 12/16/16 12/16/16 04:00 06:00 Temperature 98.7 F Pulse Rate 118 H 120 H Pulse Rate [ Apical] Pulse Rate [ 40 L Pulse ox] Respiratory 40 H Rate Blood Pressure 82/38 [Left Arm] Blood Pressure [Right Arm] O2 Sat by Pulse 91 L Oximetry General: No: Alert (does not respond to verbal stimuli), Oriented to Person, Oriented to Place, Oriented to Time, Severe distress HEENT: Atraumatic. No: Mouth Mucous membr. moist/Long Neck (dry, mouth brething) Neck: Normal Range of Motion. No: Stridor, Rigidity, Lymphadenopathy Thyroid: WNL Lungs: Respiratory Distress, Wheezes (all lung gillis), Rales (all lung gillis) , Rhonchi (all lung gillis), Accessory Muscle Use Cardiovascular: Regular rate, Normal S1, Normal S2, No murmurs Abdomen: Normal bowel sounds, Soft, No tenderness, No hepatospenomegaly, No masses Integumentary: Normal, Long Neck, Warm, Dry Extremities: No clubbing, No cyanosis, No edema Neurological: Normal tone, Cranial nerves 3-12 NL, Reflexes 2+ Psych/Mental Status: No: Mental status NL, Mood NL, Appropriate Affect, Intact Judgment - Laboratory Results Laboratory Results: Laboratory Results 12/15/16 12/15/16 12/15/16 13:30 13:30 14:10 WBC 13.10 H RBC 3.90 Hgb 13.2 Hct 41.2 MCV 105.6 H MCH 33.9 MCHC 32.1 RDW 14.6 H Plt Count 300 Neut % (Auto) 71.1 Lymph % (Auto) 24.6 [place] % (Auto) 2.2 Eos % (Auto) 0.2 Baso % (Auto) 0.7 Neut # (Auto) 9.3 H Lymph # (Auto) 3.2 [place] # (Auto) 0.3 Eos # (Auto) 0.0 Baso # (Auto) 0.1 Reactive Lymphs % 1.0 Reactive Lymphs # 0.1 Sodium 153 H Potassium 3.9 Chloride 120 H Carbon Dioxide 15 L BUN 50 H Creatinine 1.5 Est GFR ( Amer) 43 L Est GFR (Non-Af Amer) 35 L Glucose 362 H Calcium 10.5 Total Bilirubin 0.5 AST 14 ALT 14 Alkaline Phosphatase 37 L NT-Pro-B Natriuret Pep 2658.1 H Total Protein 7.4 Albumin 4.3 Urine Color Urine Appearance Urine pH Ur Specific [place] Urine Protein Urine Ketones Urine Occult Blood Urine Nitrite Urine Bilirubin Urine Urobilinogen Ur Leukocyte Esterase Urine RBC Urine WBC Ur Squamous Epith Cells Amorphous Sediment Urine Bacteria Urine Glucose 12/15/16 14:20 WBC RBC Hgb Hct MCV MCH MCHC RDW Plt Count Neut % (Auto) Lymph % (Auto) [place] % (Auto) Eos % (Auto) Baso % (Auto) Neut # (Auto) Lymph # (Auto) [place] # (Auto) Eos # (Auto) Baso # (Auto) Reactive Lymphs % Reactive Lymphs # Sodium Potassium Chloride Carbon Dioxide BUN Creatinine Est GFR ( Amer) Est GFR (Non-Af Amer) Glucose Calcium Total Bilirubin AST ALT Alkaline Phosphatase NT-Pro-B Natriuret Pep Total Protein Albumin Urine Color Yellow Urine Appearance Clear Urine pH 5.5 Ur Specific [place] 1.020 Urine Protein 2+ H Urine Ketones Negative Urine Occult Blood 2+ H Urine Nitrite Negative Urine Bilirubin Negative Urine Urobilinogen 0.2 Ur Leukocyte Esterase Negative Urine RBC 2-5 H Urine WBC 0-2 Ur Squamous Epith Cells Few Amorphous Sediment Few H Urine Bacteria Few H Urine Glucose Negative Assessment/Plan - Assessment/Plan (1) Aspiration pneumonia due to food (regurgitated) Status: Acute Current Visit: Yes (2) COPD exacerbation Status: Acute Current Visit: No Assessment: Will start HFN with duoned, consider steroid therapy (3) CRD (chronic renal disease), stage IV Status: Chronic Current Visit: No Assessment: Stage 4, GFR 35 (4) Hypernatremia Status: Chronic Current Visit: No (5) Mental status change Status: Chronic Current Visit: No Assessment: dementia, less responsive then normal (6) Anemia Status: Chronic Current Visit: No Qualifiers: Anemia type: iron deficiency Assessment: HG 13.2 (7) Atrial fibrillation Status: Chronic Current Visit: No (8) Essential hypertension Status: Chronic Current Visit: No Assessment: continue home meds VTE Assessment - RISK FACTOR SCORE VTE RISK FACTOR SCORES: AGE OVER 60 YEARS, ACUTE INFECTION OTHER THEN SEPSIS - RISK VTE MODERATE RISK: SCORE OF 2 (RISK PROXIMAL DVT 2-4%) SOCRATESXIS NEEDED
--- NOTE | 2016-12-16 07:56 | Inpatient Progress Note ---
Subjective - Required Recertification Statement I anticipate X number of days because-include discharge plan: 3 days - Review of Systems Events since last encounter: Patient remains tachypnic, SAO2 is improved, still on nonrebreather mask. Still not responding to verbal stimuli. Patient hypernatremic. Objective - Exam Vitals and I&O: Vital Signs Temp 98.7 F 12/16/16 06:00 Pulse 40 L 12/16/16 06:00 Resp 40 H 12/16/16 06:00 BP 82/38 12/16/16 06:00 Pulse Ox 91 L 12/16/16 06:00 Intake & Output 12/15/16 12/15/16 12/16/16 11:59 23:59 11:59 Intake Total 300 Output Total 30 0 Balance 270 0 Weight 49.895 kg Intake: IV 300 Left Forearm 300 Oral 0 Output: Urine 30 0 Other: Voiding Method Indwelling Catheter # Bowel Movements 6 General: No: Alert, Oriented to Person, Oriented to Place, Oriented to Time, Moderate distress Neck: Supple, No JVD Lungs: Rhonchi (bilateral improved). No: Wheezes Cardiovascular: Tachycardia Abdomen: Normal bowel sounds, Soft, No tenderness Extremities: No edema Skin: Normal, [place], Warm Psych/Mental Status: No: Mental status NL, Mood NL, Intact Judgment - Results Results: Laboratory Results WBC 13.10 K/ul (4.00-12.00) H 12/15/16 13:30 RBC 3.90 M/ul (3.90-5.20) 12/15/16 13:30 Hgb 13.2 g/dL (12.0-16.0) 12/15/16 13:30 Hct 41.2 % (34.5-46.5) 12/15/16 13:30 MCV 105.6 fl (80.0-100.0) H 12/15/16 13:30 MCH 33.9 pg (28.0-34.0) 12/15/16 13:30 MCHC 32.1 g/dL (30.0-36.0) 12/15/16 13:30 RDW 14.6 % (11.3-14.3) H 12/15/16 13:30 Plt Count 300 K/mm3 (130-400) 12/15/16 13:30 Neut % (Auto) 71.1 % (39.0-79.0) 12/15/16 13:30 Lymph % (Auto) 24.6 % (16.0-50.0) 12/15/16 13:30 [place] % (Auto) 2.2 % (0.0-11.0) 12/15/16 13:30 Eos % (Auto) 0.2 % (0.0-6.8) 12/15/16 13:30 Baso % (Auto) 0.7 (0.0-1.5) 12/15/16 13:30 Neut # (Auto) 9.3 # k/uL (1.4-7.7) H 12/15/16 13:30 Lymph # (Auto) 3.2 # k/uL (0.6-4.0) 12/15/16 13:30 [place] # (Auto) 0.3 # k/uL (0.0-0.9) 12/15/16 13:30 Eos # (Auto) 0.0 # k/uL (0.0-0.6) 12/15/16 13:30 Baso # (Auto) 0.1 # k/uL (0.0-0.5) 12/15/16 13:30 Reactive Lymphs % 1.0 % (0.0-5.0) 12/15/16 13:30 Reactive Lymphs # 0.1 # k/uL (0.0-0.8) 12/15/16 13:30 Sodium 153 mmol/L (136-145) H 12/15/16 13:30 Potassium 3.9 mmol/L (3.5-5.0) 12/15/16 13:30 Chloride 120 mmol/L (98-110) H 12/15/16 13:30 Carbon Dioxide 15 mmol/L (20-32) L 12/15/16 13:30 BUN 50 mg/dL (10-26) H 12/15/16 13:30 Creatinine 1.5 mg/dL (0.4-1.5) 12/15/16 13:30 Est GFR ( Amer) 43 (60-) L 12/15/16 13:30 Est GFR (Non-Af Amer) 35 (60-) L 12/15/16 13:30 Glucose 362 mg/dL (70-99) H 12/15/16 13:30 Calcium 10.5 mg/dL (8.5-10.5) 12/15/16 13:30 Total Bilirubin 0.5 mg/dL (0.2-1.2) 12/15/16 13:30 AST 14 U/L (0-41) 12/15/16 13:30 ALT 14 U/L (0-45) 12/15/16 13:30 Alkaline Phosphatase 37 U/L (46-116) L 12/15/16 13:30 NT-Pro-B Natriuret Pep 2658.1 pg/mL (15.0-450.0) H 12/15/16 14:10 Total Protein 7.4 g/dL (6.0-8.5) 12/15/16 13:30 Albumin 4.3 g/dL (3.0-5.5) 12/15/16 13:30 Urine Color Yellow (YELLOW) 12/15/16 14:20 Urine Appearance Clear (CLEAR) 12/15/16 14:20 Urine pH 5.5 (5.0 - 8.0) 12/15/16 14:20 Ur Specific [place] 1.020 (1.010-1.030) 12/15/16 14:20 Urine Protein 2+ mg/dL (NEGATIVE) H 12/15/16 14:20 Urine Ketones Negative mg/dL (NEGATIVE) 12/15/16 14:20 Urine Occult Blood 2+ (NEGATIVE) H 12/15/16 14:20 Urine Nitrite Negative (NEGATIVE) 12/15/16 14:20 Urine Bilirubin Negative (NEGATIVE) 12/15/16 14:20 Urine Urobilinogen 0.2 Eu (0.2-1.0) 12/15/16 14:20 Ur Leukocyte Esterase Negative (NEGATIVE) 12/15/16 14:20 Urine RBC 2-5 (0-2 HPF) H 12/15/16 14:20 Urine WBC 0-2 (0-5 HPF) 12/15/16 14:20 Ur Squamous Epith Cells Few (NEG-FEW) 12/15/16 14:20 Amorphous Sediment Few (NEGATIVE) H 12/15/16 14:20 Urine Bacteria Few (NEGATIVE) H 12/15/16 14:20 Urine Glucose Negative mg/dL (NEGATIVE) 12/15/16 14:20 Assessment/Plan - Assessment/Plan (1) Aspiration pneumonia due to food (regurgitated) Status: Acute Current Visit: Yes Assessment: will start steroids. Continue with present antibiotics and HFN treatment. (2) Alzheimer's dementia Status: Chronic Current Visit: No Qualifiers: Alzheimer's disease onset: late-onset Dementia behavioral disturbance: without behavioral disturbance Qualified Code(s): G30.1 - Alzheimer's disease with late onset; F02.80 - Dementia in other diseases classified elsewhere without behavioral disturbance Assessment: stable, patient not responsive (3) COPD exacerbation Status: Acute Current Visit: No Assessment: slightly improved
[2016-12-16] MEDS ORDERED: DEXTROSE 5 % IN WATER 100 ML IV.SOLN IV SCH (08:00)
[2016-12-16] MEDS: SALINE FLUSH 10 ML DISP.SYRIN IV SCH ×2 (09:38→20:46)
[2016-12-16] MEDS: MORPHINE SULFATE 10MG/0.5ML ORAL SOLUTION PO PRN ×5 (09:43→20:13)
[2016-12-16] MEDS: cefTRIAXone SODIUM 1 GM in 0.9 % SODIUM CHLORIDE 50 ML IV SCH (14:57)
[2016-12-16] MEDS: AZITHROMYCIN 500 MG in 0.9 % SODIUM CHLORIDE 250 ML IV SCH (15:26)
[2016-12-16] MEDS: ENOXAPARIN SODIUM 30 MG/0.3 ML DISP.SYRIN SQ SCH (16:01)
[2016-12-16] MEDS ORDERED: methylPREDNISolone SOD SUCC 80 MG in 0.9 % SODIUM CHLORIDE 100 ML IV SCH (20:00)
[2016-12-16] MEDS ORDERED: MORPHINE SULFATE 10MG/0.5ML ORAL SOLUTION PO ONE (20:04)
[2016-12-16] MEDS: DEXTROSE 5 % IN WATER 1,000 ML IV SCH (20:34)
[2016-12-16] MEDS ORDERED: methylPREDNISolone SOD SUCC 40 MG/ML VIAL ONE (20:40)
[2016-12-16] MEDS: methylPREDNISolone SOD SUCC 40 MG/ML VIAL IVP SCH (20:46)
[2016-12-17] MEDS ORDERED: MORPHINE SULFATE 10MG/0.5ML ORAL SOLUTION PO ONE ×3 (01:43→08:43)
[2016-12-17] MEDS: IPRATROPIUM/ALBUTEROL SULFATE 3 ML AMPUL.NEB NEB SCH ×6 (01:58→20:43)
[2016-12-17] MEDS: MORPHINE SULFATE 10MG/0.5ML ORAL SOLUTION PO PRN ×3 (01:59→08:49)
[2016-12-17] MEDS: DEXTROSE 5 % IN WATER 1,000 ML IV SCH (05:55)
[2016-12-17 06:12] LABS: BASOPHILS % 0.7 (0.0-1.5); EOSINOPHILS % 0.6 % (0.0-6.8); MEAN CORPUSCULAR HEMOGLOBIN 33.6 pg (28.0-34.0); MEAN CORPUSCULAR VOLUME 103.4 fl (80.0-100.0); MONOCYTES % 1.3 % (0.0-11.0); NEUTROPHILS # 9.8 # k/uL (1.4-7.7)
[2016-12-17] MEDS ORDERED: 0.9 % SODIUM CHLORIDE 1,000 ML IV ONE (07:11)
[2016-12-17] MEDS ORDERED: 0.9 % SODIUM CHLORIDE 1,000 ML IV SCH (07:30)
[2016-12-17] MEDS ORDERED: ACETAMINOPHEN 325 MG SUPP.RECT RC PRN (09:33)
--- NOTE | 2016-12-17 09:39 | Inpatient Progress Note ---
Subjective - Required Recertification Statement I anticipate X number of days because-include discharge plan: 1 - Review of Systems Subjective: Patient continues to be unresponsive. Minimal urine output. Breathing has become more agonal. Objective - Exam Vitals and I&O: Vital Signs Temp 99.5 F 12/17/16 06:00 Pulse 110 H 12/17/16 06:00 Resp 28 H 12/17/16 06:00 BP 118/57 12/17/16 06:00 Pulse Ox 95 12/17/16 06:00 Intake & Output 12/16/16 12/16/16 12/17/16 11:59 23:59 11:59 Intake Total 700 1230 Output Total 0 60 Balance 0 700 1170 Intake: IV 700 1200 Left Forearm 700 1200 Oral 0 30 Output: Urine 0 60 Other: Voiding Method Indwelling Catheter Indwelling Catheter # Bowel Movements 6 General: Mild distress Lungs: Rhonchi Cardiovascular: Regular rate - Results Results: Laboratory Results WBC 11.30 K/ul (4.00-12.00) 12/17/16 06:00 RBC 3.13 M/ul (3.90-5.20) L 12/17/16 06:00 Hgb 10.5 g/dL (12.0-16.0) L 12/17/16 06:00 Hct 32.4 % (34.5-46.5) L 12/17/16 06:00 MCV 103.4 fl (80.0-100.0) H 12/17/16 06:00 MCH 33.6 pg (28.0-34.0) 12/17/16 06:00 MCHC 32.5 g/dL (30.0-36.0) 12/17/16 06:00 RDW 14.8 % (11.3-14.3) H 12/17/16 06:00 Plt Count 234 K/mm3 (130-400) 12/17/16 06:00 Neut % (Auto) 87.0 % (39.0-79.0) H 12/17/16 06:00 Lymph % (Auto) 9.6 % (16.0-50.0) L 12/17/16 06:00 [place] % (Auto) 1.3 % (0.0-11.0) 12/17/16 06:00 Eos % (Auto) 0.6 % (0.0-6.8) 12/17/16 06:00 Baso % (Auto) 0.7 (0.0-1.5) 12/17/16 06:00 Neut # (Auto) 9.8 # k/uL (1.4-7.7) H 12/17/16 06:00 Lymph # (Auto) 1.1 # k/uL (0.6-4.0) 12/17/16 06:00 [place] # (Auto) 0.1 # k/uL (0.0-0.9) 12/17/16 06:00 Eos # (Auto) 0.1 # k/uL (0.0-0.6) 12/17/16 06:00 Baso # (Auto) 0.1 # k/uL (0.0-0.5) 12/17/16 06:00 Reactive Lymphs % 0.9 % (0.0-5.0) 12/17/16 06:00 Reactive Lymphs # 0.1 # k/uL (0.0-0.8) 12/17/16 06:00 Sodium 142 mmol/L (136-145) 12/17/16 06:00 Potassium 6.0 mmol/L (3.5-5.0) H 12/17/16 06:00 Chloride 110 mmol/L (98-110) 12/17/16 06:00 Carbon Dioxide 14 mmol/L (20-32) L 12/17/16 06:00 BUN 93 mg/dL (10-26) H 12/17/16 06:00 Creatinine 4.8 mg/dL (0.4-1.5) H 12/17/16 06:00 Estimated Creat Clear 8 12/17/16 06:00 Est GFR ( Amer) 11 (60-) L 12/17/16 06:00 Est GFR (Non-Af Amer) 9 (60-) L 12/17/16 06:00 Glucose 479 mg/dL (70-99) H 12/17/16 06:00 Calcium 9.1 mg/dL (8.5-10.5) 12/17/16 06:00 Total Bilirubin 0.1 mg/dL (0.2-1.2) L 12/17/16 06:00 AST 46 U/L (0-41) H 12/17/16 06:00 ALT 62 U/L (0-45) H 12/17/16 06:00 Alkaline Phosphatase 44 U/L (46-116) L 12/17/16 06:00 NT-Pro-B Natriuret Pep 2658.1 pg/mL (15.0-450.0) H 12/15/16 14:10 Total Protein 6.5 g/dL (6.0-8.5) 12/17/16 06:00 Albumin 3.6 g/dL (3.0-5.5) 12/17/16 06:00 Urine Color Yellow (YELLOW) 12/15/16 14:20 Urine Appearance Clear (CLEAR) 12/15/16 14:20 Urine pH 5.5 (5.0 - 8.0) 12/15/16 14:20 Ur Specific [place] 1.020 (1.010-1.030) 12/15/16 14:20 Urine Protein 2+ mg/dL (NEGATIVE) H 12/15/16 14:20 Urine Ketones Negative mg/dL (NEGATIVE) 12/15/16 14:20 Urine Occult Blood 2+ (NEGATIVE) H 12/15/16 14:20 Urine Nitrite Negative (NEGATIVE) 12/15/16 14:20 Urine Bilirubin Negative (NEGATIVE) 12/15/16 14:20 Urine Urobilinogen 0.2 Eu (0.2-1.0) 12/15/16 14:20 Ur Leukocyte Esterase Negative (NEGATIVE) 12/15/16 14:20 Urine RBC 2-5 (0-2 HPF) H 12/15/16 14:20 Urine WBC 0-2 (0-5 HPF) 12/15/16 14:20 Ur Squamous Epith Cells Few (NEG-FEW) 12/15/16 14:20 Amorphous Sediment Few (NEGATIVE) H 12/15/16 14:20 Urine Bacteria Few (NEGATIVE) H 12/15/16 14:20 Urine Glucose Negative mg/dL (NEGATIVE) 12/15/16 14:20 Assessment/Plan - Assessment/Plan (1) Aspiration pneumonia due to food (regurgitated) Status: Acute Current Visit: Yes Plan: Patient is not improving. Family wants to continue IV antibiotics. I am going to talk to PCP about stopping steroids and IVF. Still having air hunger. Will change morphine from SL to po. (2) Alzheimer's dementia Status: Chronic Current Visit: No Qualifiers: Alzheimer's disease onset: late-onset Dementia behavioral disturbance: without behavioral disturbance Qualified Code(s): G30.1 - Alzheimer's disease with late onset; F02.80 - Dementia in other diseases classified elsewhere without behavioral disturbance
[2016-12-17] MEDS ORDERED: methylPREDNISolone SOD SUCC 40 MG/ML VIAL ONE (10:01)
[2016-12-17] MEDS: methylPREDNISolone SOD SUCC 40 MG/ML VIAL IVP SCH (10:04)
[2016-12-17] MEDS: MORPHINE SULFATE 2 MG/ML PREFILLED SYR IVP PRN ×6 (11:15→23:11)
[2016-12-17] MEDS: SALINE FLUSH 10 ML DISP.SYRIN IV SCH ×2 (11:35→23:10)
[2016-12-17] MEDS: cefTRIAXone SODIUM 1 GM in 0.9 % SODIUM CHLORIDE 50 ML IV SCH (14:53)
[2016-12-17] MEDS: ENOXAPARIN SODIUM 30 MG/0.3 ML DISP.SYRIN SQ SCH (14:53)
[2016-12-17] MEDS: AZITHROMYCIN 500 MG in 0.9 % SODIUM CHLORIDE 250 ML IV SCH (15:33)
[2016-12-18] MEDS: MORPHINE SULFATE 2 MG/ML PREFILLED SYR IVP PRN ×4 (01:55→14:18)
[2016-12-18] MEDS: IPRATROPIUM/ALBUTEROL SULFATE 3 ML AMPUL.NEB NEB SCH ×6 (01:55→22:14)
[2016-12-18] MEDS: SALINE FLUSH 10 ML DISP.SYRIN IV SCH ×2 (09:02→22:16)
--- NOTE | 2016-12-18 09:49 | Inpatient Progress Note ---
Subjective - Required Recertification Statement I anticipate X number of days because-include discharge plan: 1 - Review of Systems Subjective: Patient unchanged. Unresponsive. Minimal urine output. Objective - Exam Vitals and I&O: Vital Signs Temp 99.1 F 12/18/16 06:00 Pulse 108 H 12/18/16 08:00 Resp 20 12/18/16 06:00 BP 115/63 12/18/16 06:00 Pulse Ox 100 12/18/16 06:00 Intake & Output 12/17/16 12/17/16 12/18/16 11:59 23:59 11:59 Intake Total 3630 965 40 Output Total 60 15 30 Balance 3570 950 10 Intake: IV 3600 950 10 Left Antecubital 250 10 Left Forearm 3600 700 Oral 30 15 30 Output: Urine 60 15 30 Other: Voiding Method Indwelling Catheter Indwelling Catheter General: Mild distress Lungs: Rhonchi Cardiovascular: Tachycardia Extremities: No: No edema - Results Results: Laboratory Results WBC 11.30 K/ul (4.00-12.00) 12/17/16 06:00 RBC 3.13 M/ul (3.90-5.20) L 12/17/16 06:00 Hgb 10.5 g/dL (12.0-16.0) L 12/17/16 06:00 Hct 32.4 % (34.5-46.5) L 12/17/16 06:00 MCV 103.4 fl (80.0-100.0) H 12/17/16 06:00 MCH 33.6 pg (28.0-34.0) 12/17/16 06:00 MCHC 32.5 g/dL (30.0-36.0) 12/17/16 06:00 RDW 14.8 % (11.3-14.3) H 12/17/16 06:00 Plt Count 234 K/mm3 (130-400) 12/17/16 06:00 Neut % (Auto) 87.0 % (39.0-79.0) H 12/17/16 06:00 Lymph % (Auto) 9.6 % (16.0-50.0) L 12/17/16 06:00 [place] % (Auto) 1.3 % (0.0-11.0) 12/17/16 06:00 Eos % (Auto) 0.6 % (0.0-6.8) 12/17/16 06:00 Baso % (Auto) 0.7 (0.0-1.5) 12/17/16 06:00 Neut # (Auto) 9.8 # k/uL (1.4-7.7) H 12/17/16 06:00 Lymph # (Auto) 1.1 # k/uL (0.6-4.0) 12/17/16 06:00 [place] # (Auto) 0.1 # k/uL (0.0-0.9) 12/17/16 06:00 Eos # (Auto) 0.1 # k/uL (0.0-0.6) 12/17/16 06:00 Baso # (Auto) 0.1 # k/uL (0.0-0.5) 12/17/16 06:00 Reactive Lymphs % 0.9 % (0.0-5.0) 12/17/16 06:00 Reactive Lymphs # 0.1 # k/uL (0.0-0.8) 12/17/16 06:00 Sodium 142 mmol/L (136-145) 12/17/16 06:00 Potassium 6.0 mmol/L (3.5-5.0) H 12/17/16 06:00 Chloride 110 mmol/L (98-110) 12/17/16 06:00 Carbon Dioxide 14 mmol/L (20-32) L 12/17/16 06:00 BUN 93 mg/dL (10-26) H 12/17/16 06:00 Creatinine 4.8 mg/dL (0.4-1.5) H 12/17/16 06:00 Estimated Creat Clear 8 12/17/16 06:00 Est GFR ( Amer) 11 (60-) L 12/17/16 06:00 Est GFR (Non-Af Amer) 9 (60-) L 12/17/16 06:00 Glucose 479 mg/dL (70-99) H 12/17/16 06:00 Calcium 9.1 mg/dL (8.5-10.5) 12/17/16 06:00 Total Bilirubin 0.1 mg/dL (0.2-1.2) L 12/17/16 06:00 AST 46 U/L (0-41) H 12/17/16 06:00 ALT 62 U/L (0-45) H 12/17/16 06:00 Alkaline Phosphatase 44 U/L (46-116) L 12/17/16 06:00 NT-Pro-B Natriuret Pep 2658.1 pg/mL (15.0-450.0) H 12/15/16 14:10 Total Protein 6.5 g/dL (6.0-8.5) 12/17/16 06:00 Albumin 3.6 g/dL (3.0-5.5) 12/17/16 06:00 Urine Color Yellow (YELLOW) 12/15/16 14:20 Urine Appearance Clear (CLEAR) 12/15/16 14:20 Urine pH 5.5 (5.0 - 8.0) 12/15/16 14:20 Ur Specific [place] 1.020 (1.010-1.030) 12/15/16 14:20 Urine Protein 2+ mg/dL (NEGATIVE) H 12/15/16 14:20 Urine Ketones Negative mg/dL (NEGATIVE) 12/15/16 14:20 Urine Occult Blood 2+ (NEGATIVE) H 12/15/16 14:20 Urine Nitrite Negative (NEGATIVE) 12/15/16 14:20 Urine Bilirubin Negative (NEGATIVE) 12/15/16 14:20 Urine Urobilinogen 0.2 Eu (0.2-1.0) 12/15/16 14:20 Ur Leukocyte Esterase Negative (NEGATIVE) 12/15/16 14:20 Urine RBC 2-5 (0-2 HPF) H 12/15/16 14:20 Urine WBC 0-2 (0-5 HPF) 12/15/16 14:20 Ur Squamous Epith Cells Few (NEG-FEW) 12/15/16 14:20 Amorphous Sediment Few (NEGATIVE) H 12/15/16 14:20 Urine Bacteria Few (NEGATIVE) H 12/15/16 14:20 Urine Glucose Negative mg/dL (NEGATIVE) 12/15/16 14:20 Assessment/Plan - Assessment/Plan (1) Aspiration pneumonia due to food (regurgitated) Status: Acute Current Visit: Yes Plan: Steroids and IVF have been stopped. Will give IV antibiotics one more day. Patient family aware of dire prognosis. Patient appears comfortable. (2) Alzheimer's dementia Status: Chronic Current Visit: No Qualifiers: Alzheimer's disease onset: late-onset Dementia behavioral disturbance: without behavioral disturbance Qualified Code(s): G30.1 - Alzheimer's disease with late onset; F02.80 - Dementia in other diseases classified elsewhere without behavioral disturbance
[2016-12-18] MEDS: ENOXAPARIN SODIUM 30 MG/0.3 ML DISP.SYRIN SQ SCH (15:07)
[2016-12-18] MEDS: AZITHROMYCIN 500 MG in 0.9 % SODIUM CHLORIDE 250 ML IV SCH (15:08)
[2016-12-18] MEDS: cefTRIAXone SODIUM 1 GM in 0.9 % SODIUM CHLORIDE 50 ML IV SCH (19:54)
[2016-12-19] MEDS: IPRATROPIUM/ALBUTEROL SULFATE 3 ML AMPUL.NEB NEB SCH ×6 (01:07→21:03)
[2016-12-19 09:03] LABS: MEAN CORPUSCULAR HEMOGLOBIN 32.7 pg (28.0-34.0); MEAN CORPUSCULAR VOLUME 104.6 fl (80.0-100.0)
[2016-12-19 09:29] LABS: HYPOCHROMASIA 1+ (NEGATIVE); MONOCYTES % 1 % (0-11); SEGMENTED NEUTROPHILS % 84 % (39-79); TOXIC GRANULATION PRESENT
[2016-12-19] MEDS: SALINE FLUSH 10 ML DISP.SYRIN IV SCH ×2 (09:39→21:03)
[2016-12-19] MEDS: MORPHINE SULFATE 2 MG/ML PREFILLED SYR IVP PRN ×3 (09:40→21:03)
[2016-12-19] MEDS: AZITHROMYCIN 500 MG in 0.9 % SODIUM CHLORIDE 250 ML IV SCH (16:00)
[2016-12-19] MEDS: ENOXAPARIN SODIUM 30 MG/0.3 ML DISP.SYRIN SQ SCH (16:47)
[2016-12-19] MEDS: cefTRIAXone SODIUM 1 GM in 0.9 % SODIUM CHLORIDE 50 ML IV SCH (19:01)
[2016-12-20] MEDS: IPRATROPIUM/ALBUTEROL SULFATE 3 ML AMPUL.NEB NEB SCH ×6 (01:05→21:57)
[2016-12-20] MEDS: MORPHINE SULFATE 2 MG/ML PREFILLED SYR IVP PRN ×5 (06:11→23:30)
[2016-12-20] MEDS: SALINE FLUSH 10 ML DISP.SYRIN IV SCH ×2 (09:12→21:00)
[2016-12-20] MEDS: cefTRIAXone SODIUM 1 GM in 0.9 % SODIUM CHLORIDE 50 ML IV SCH (15:02)
[2016-12-20] MEDS: ENOXAPARIN SODIUM 30 MG/0.3 ML DISP.SYRIN SQ SCH (15:03)
[2016-12-21] MEDS: MORPHINE SULFATE 2 MG/ML PREFILLED SYR IVP PRN ×3 (01:30→09:23)
[2016-12-21] MEDS: IPRATROPIUM/ALBUTEROL SULFATE 3 ML AMPUL.NEB NEB SCH ×3 (01:40→09:23)
--- NOTE | 2016-12-21 08:38 | Inpatient Progress Note ---
Subjective - Required Recertification Statement I anticipate X number of days because-include discharge plan: 1 day - Review of Systems Events since last encounter: Patient remains comatose with no response. Lungs are clearing. I have talked with her family and public software administrator and they agree just to treat pneumonia and provide comfort care. Objective - Exam Vitals and I&O: Vital Signs Temp 99.4 F 12/21/16 05:52 Pulse 87 12/21/16 05:53 Resp 16 12/21/16 05:52 BP 93/62 12/21/16 05:52 Pulse Ox 98 12/21/16 05:52 Intake & Output 12/20/16 12/20/16 12/21/16 11:59 23:59 11:59 Intake Total 60 75 Output Total 450 350 50 Balance -390 -275 -50 Intake: IV 30 60 Left Antecubital 30 60 Oral 30 15 Output: Urine 450 350 50 Other: Voiding Method Indwelling Catheter Indwelling Catheter General: Other (comatose). No: Alert Neck: Supple Lungs: Rhonchi (few scattered, still requires NRM to keep SAO2 up. ) Cardiovascular: Regular rate, Normal S1, Normal S2 Abdomen: Decreased Bowel Sounds Extremities: No clubbing, No cyanosis Skin: Normal, Warm, Dry Psych/Mental Status: No: Mental status NL, Mood NL, Intact Judgment - Results Results: Laboratory Results WBC 13.00 K/ul (4.00-12.00) H 12/19/16 08:45 RBC 2.87 M/ul (3.90-5.20) L 12/19/16 08:45 Hgb 9.4 g/dL (12.0-16.0) L 12/19/16 08:45 Hct 30.0 % (34.5-46.5) L 12/19/16 08:45 MCV 104.6 fl (80.0-100.0) H 12/19/16 08:45 MCH 32.7 pg (28.0-34.0) 12/19/16 08:45 MCHC 31.3 g/dL (30.0-36.0) 12/19/16 08:45 RDW 14.6 % (11.3-14.3) H 12/19/16 08:45 Plt Count 201 K/mm3 (130-400) 12/19/16 08:45 Neut % (Auto) 87.0 % (39.0-79.0) H 12/17/16 06:00 Lymph % (Auto) 9.6 % (16.0-50.0) L 12/17/16 06:00 [place] % (Auto) 1.3 % (0.0-11.0) 12/17/16 06:00 Eos % (Auto) 0.6 % (0.0-6.8) 12/17/16 06:00 Baso % (Auto) 0.7 (0.0-1.5) 12/17/16 06:00 Neut # (Auto) 9.8 # k/uL (1.4-7.7) H 12/17/16 06:00 Lymph # (Auto) 1.1 # k/uL (0.6-4.0) 12/17/16 06:00 [place] # (Auto) 0.1 # k/uL (0.0-0.9) 12/17/16 06:00 Eos # (Auto) 0.1 # k/uL (0.0-0.6) 12/17/16 06:00 Baso # (Auto) 0.1 # k/uL (0.0-0.5) 12/17/16 06:00 Seg Neutrophils % 84 % (39-79) H 12/19/16 08:45 Band Neutrophils % 5 % (0-12) 12/19/16 08:45 Lymphocytes % 10 % (16-50) L 12/19/16 08:45 Reactive Lymphs % 0.9 % (0.0-5.0) 12/17/16 06:00 Monocytes % 1 % (0-11) 12/19/16 08:45 Reactive Lymphs # 0.1 # k/uL (0.0-0.8) 12/17/16 06:00 Toxic Granulation Present 12/19/16 08:45 Plt Morphology Comment Normal (NORMAL) 12/19/16 08:45 Hypochromasia 1+ (NEGATIVE) H 12/19/16 08:45 Macrocytosis 1+ (NEGATIVE) H 12/19/16 08:45 RBC Morph Comment Abnormal (NORMAL) H 12/19/16 08:45 Sodium 151 mmol/L (136-145) H 12/19/16 08:45 Potassium 7.6 mmol/L (3.5-5.0) H* 12/19/16 08:45 Chloride 116 mmol/L (98-110) H 12/19/16 08:45 Carbon Dioxide 19 mmol/L (20-32) L 12/19/16 08:45 BUN 147 mg/dL (10-26) H 12/19/16 08:45 Creatinine 6.6 mg/dL (0.4-1.5) H 12/19/16 08:45 Estimated Creat Clear 6 12/19/16 08:45 Est GFR ( Amer) 8 (60-) L 12/19/16 08:45 Est GFR (Non-Af Amer) 6 (60-) L 12/19/16 08:45 Glucose 315 mg/dL (70-99) H 12/19/16 08:45 Calcium 8.6 mg/dL (8.5-10.5) 12/19/16 08:45 Total Bilirubin 0.2 mg/dL (0.2-1.2) 12/19/16 08:45 AST 35 U/L (0-41) 12/19/16 08:45 ALT 47 U/L (0-45) H 12/19/16 08:45 Alkaline Phosphatase 57 U/L (46-116) 12/19/16 08:45 NT-Pro-B Natriuret Pep 2658.1 pg/mL (15.0-450.0) H 12/15/16 14:10 Total Protein 6.3 g/dL (6.0-8.5) 12/19/16 08:45 Albumin 3.7 g/dL (3.0-5.5) 12/19/16 08:45 Urine Color Yellow (YELLOW) 12/15/16 14:20 Urine Appearance Clear (CLEAR) 12/15/16 14:20 Urine pH 5.5 (5.0 - 8.0) 12/15/16 14:20 Ur Specific [place] 1.020 (1.010-1.030) 12/15/16 14:20 Urine Protein 2+ mg/dL (NEGATIVE) H 12/15/16 14:20 Urine Ketones Negative mg/dL (NEGATIVE) 12/15/16 14:20 Urine Occult Blood 2+ (NEGATIVE) H 12/15/16 14:20 Urine Nitrite Negative (NEGATIVE) 12/15/16 14:20 Urine Bilirubin Negative (NEGATIVE) 12/15/16 14:20 Urine Urobilinogen 0.2 Eu (0.2-1.0) 12/15/16 14:20 Ur Leukocyte Esterase Negative (NEGATIVE) 12/15/16 14:20 Urine RBC 2-5 (0-2 HPF) H 12/15/16 14:20 Urine WBC 0-2 (0-5 HPF) 12/15/16 14:20 Ur Squamous Epith Cells Few (NEG-FEW) 12/15/16 14:20 Amorphous Sediment Few (NEGATIVE) H 12/15/16 14:20 Urine Bacteria Few (NEGATIVE) H 12/15/16 14:20 Urine Glucose Negative mg/dL (NEGATIVE) 12/15/16 14:20 Assessment/Plan - Assessment/Plan (1) Aspiration pneumonia due to food (regurgitated) Status: Acute Current Visit: Yes (2) Alzheimer's dementia Status: Chronic Current Visit: No Qualifiers: Alzheimer's disease onset: late-onset Dementia behavioral disturbance: without behavioral disturbance Qualified Code(s): G30.1 - Alzheimer's disease with late onset; F02.80 - Dementia in other diseases classified elsewhere without behavioral disturbance Assessment: stable (3) COPD exacerbation Status: Acute Current Visit: No Assessment: improved (4) Hyperkalemia Status: Acute Current Visit: Yes
--- NOTE | 2016-12-21 08:40 | Inpatient Progress Note ---
Subjective - Required Recertification Statement I anticipate X number of days because-include discharge plan: 1 day - Review of Systems Events since last encounter: Patient's lungs appear to be clearing some. Still having some congestion. Still requires supplemental oxygen. Mental status has not improved, still is not taking any oral intake. General: Denies: Chills, Night Sweats Pulmonary: Dyspnea, Cough Objective - Exam Vitals and I&O: Vital Signs Temp 99.4 F 12/21/16 05:52 Pulse 87 12/21/16 05:53 Resp 16 12/21/16 05:52 BP 93/62 12/21/16 05:52 Pulse Ox 98 12/21/16 05:52 Intake & Output 12/20/16 12/20/16 12/21/16 11:59 23:59 11:59 Intake Total 60 75 Output Total 450 350 50 Balance -390 -275 -50 Intake: IV 30 60 Left Antecubital 30 60 Oral 30 15 Output: Urine 450 350 50 Other: Voiding Method Indwelling Catheter Indwelling Catheter General: No: Alert (does not respond to verbal stimuli, GCS 8), Oriented to Person, Oriented to Place, Oriented to Time, Cooperative HEENT: Tonsillar Swelling Neck: No JVD Lungs: Respiratory Distress, Wheezes, Rhonchi (generalized) Cardiovascular: Normal S1, Normal S2, No murmurs, Tachycardia. No: Gallops, Rubs Abdomen: Normal bowel sounds, Soft, No tenderness Extremities: No clubbing, No cyanosis, No edema Skin: Normal, Warm, Dry. No: [place] (jane) Psych/Mental Status: No: Mental status NL, Mood NL, Appropriate Affect - Results Results: Laboratory Results WBC 13.00 K/ul (4.00-12.00) H 12/19/16 08:45 RBC 2.87 M/ul (3.90-5.20) L 12/19/16 08:45 Hgb 9.4 g/dL (12.0-16.0) L 12/19/16 08:45 Hct 30.0 % (34.5-46.5) L 12/19/16 08:45 MCV 104.6 fl (80.0-100.0) H 12/19/16 08:45 MCH 32.7 pg (28.0-34.0) 12/19/16 08:45 MCHC 31.3 g/dL (30.0-36.0) 12/19/16 08:45 RDW 14.6 % (11.3-14.3) H 12/19/16 08:45 Plt Count 201 K/mm3 (130-400) 12/19/16 08:45 Neut % (Auto) 87.0 % (39.0-79.0) H 12/17/16 06:00 Lymph % (Auto) 9.6 % (16.0-50.0) L 12/17/16 06:00 [place] % (Auto) 1.3 % (0.0-11.0) 12/17/16 06:00 Eos % (Auto) 0.6 % (0.0-6.8) 12/17/16 06:00 Baso % (Auto) 0.7 (0.0-1.5) 12/17/16 06:00 Neut # (Auto) 9.8 # k/uL (1.4-7.7) H 12/17/16 06:00 Lymph # (Auto) 1.1 # k/uL (0.6-4.0) 12/17/16 06:00 [place] # (Auto) 0.1 # k/uL (0.0-0.9) 12/17/16 06:00 Eos # (Auto) 0.1 # k/uL (0.0-0.6) 12/17/16 06:00 Baso # (Auto) 0.1 # k/uL (0.0-0.5) 12/17/16 06:00 Seg Neutrophils % 84 % (39-79) H 12/19/16 08:45 Band Neutrophils % 5 % (0-12) 12/19/16 08:45 Lymphocytes % 10 % (16-50) L 12/19/16 08:45 Reactive Lymphs % 0.9 % (0.0-5.0) 12/17/16 06:00 Monocytes % 1 % (0-11) 12/19/16 08:45 Reactive Lymphs # 0.1 # k/uL (0.0-0.8) 12/17/16 06:00 Toxic Granulation Present 12/19/16 08:45 Plt Morphology Comment Normal (NORMAL) 12/19/16 08:45 Hypochromasia 1+ (NEGATIVE) H 12/19/16 08:45 Macrocytosis 1+ (NEGATIVE) H 12/19/16 08:45 RBC Morph Comment Abnormal (NORMAL) H 12/19/16 08:45 Sodium 151 mmol/L (136-145) H 12/19/16 08:45 Potassium 7.6 mmol/L (3.5-5.0) H* 12/19/16 08:45 Chloride 116 mmol/L (98-110) H 12/19/16 08:45 Carbon Dioxide 19 mmol/L (20-32) L 12/19/16 08:45 BUN 147 mg/dL (10-26) H 12/19/16 08:45 Creatinine 6.6 mg/dL (0.4-1.5) H 12/19/16 08:45 Estimated Creat Clear 6 12/19/16 08:45 Est GFR ( Amer) 8 (60-) L 12/19/16 08:45 Est GFR (Non-Af Amer) 6 (60-) L 12/19/16 08:45 Glucose 315 mg/dL (70-99) H 12/19/16 08:45 Calcium 8.6 mg/dL (8.5-10.5) 12/19/16 08:45 Total Bilirubin 0.2 mg/dL (0.2-1.2) 12/19/16 08:45 AST 35 U/L (0-41) 12/19/16 08:45 ALT 47 U/L (0-45) H 12/19/16 08:45 Alkaline Phosphatase 57 U/L (46-116) 12/19/16 08:45 NT-Pro-B Natriuret Pep 2658.1 pg/mL (15.0-450.0) H 12/15/16 14:10 Total Protein 6.3 g/dL (6.0-8.5) 12/19/16 08:45 Albumin 3.7 g/dL (3.0-5.5) 12/19/16 08:45 Urine Color Yellow (YELLOW) 12/15/16 14:20 Urine Appearance Clear (CLEAR) 12/15/16 14:20 Urine pH 5.5 (5.0 - 8.0) 12/15/16 14:20 Ur Specific [place] 1.020 (1.010-1.030) 12/15/16 14:20 Urine Protein 2+ mg/dL (NEGATIVE) H 12/15/16 14:20 Urine Ketones Negative mg/dL (NEGATIVE) 12/15/16 14:20 Urine Occult Blood 2+ (NEGATIVE) H 12/15/16 14:20 Urine Nitrite Negative (NEGATIVE) 12/15/16 14:20 Urine Bilirubin Negative (NEGATIVE) 12/15/16 14:20 Urine Urobilinogen 0.2 Eu (0.2-1.0) 12/15/16 14:20 Ur Leukocyte Esterase Negative (NEGATIVE) 12/15/16 14:20 Urine RBC 2-5 (0-2 HPF) H 12/15/16 14:20 Urine WBC 0-2 (0-5 HPF) 12/15/16 14:20 Ur Squamous Epith Cells Few (NEG-FEW) 12/15/16 14:20 Amorphous Sediment Few (NEGATIVE) H 12/15/16 14:20 Urine Bacteria Few (NEGATIVE) H 12/15/16 14:20 Urine Glucose Negative mg/dL (NEGATIVE) 12/15/16 14:20 Assessment/Plan - Assessment/Plan (1) Aspiration pneumonia due to food (regurgitated) Status: Acute Qualifiers: Lung location: unspecified part of lung Assessment: comfort measures per family and PA (2) Alzheimer's dementia Status: Chronic Qualifiers: Alzheimer's disease onset: late-onset Dementia behavioral disturbance: without behavioral disturbance Qualified Code(s): G30.1 - Alzheimer's disease with late onset; F02.80 - Dementia in other diseases classified elsewhere without behavioral disturbance (3) COPD exacerbation Status: Acute (4) Hyperkalemia Status: Acute
--- NOTE | 2016-12-21 08:41 | Inpatient Progress Note ---
Subjective - Required Recertification Statement I anticipate X number of days because-include discharge plan: 1 day Objective - Exam Vitals and I&O: Vital Signs Temp 99.4 F 12/21/16 05:52 Pulse 87 12/21/16 05:53 Resp 16 12/21/16 05:52 BP 93/62 12/21/16 05:52 Pulse Ox 98 12/21/16 05:52 Intake & Output 12/20/16 12/20/16 12/21/16 11:59 23:59 11:59 Intake Total 60 75 Output Total 450 350 50 Balance -390 -275 -50 Intake: IV 30 60 Left Antecubital 30 60 Oral 30 15 Output: Urine 450 350 50 Other: Voiding Method Indwelling Catheter Indwelling Catheter General: No: Alert (no change), Oriented to Person, Oriented to Place, Oriented to Time Neck: Supple, No JVD Lungs: Respiratory Distress, Wheezes (bilat), Rhonchi. No: Clear to auscultation, Speaks full Sentences, Rales Cardiovascular: Regular rate, Normal S1, Normal S2 Abdomen: Soft, No tenderness, Decreased Bowel Sounds Extremities: No clubbing, No cyanosis, No edema Skin: Normal, Warm, Dry Psych/Mental Status: No: Mental status NL, Mood NL, Appropriate Affect - Results Results: Laboratory Results WBC 13.00 K/ul (4.00-12.00) H 12/19/16 08:45 RBC 2.87 M/ul (3.90-5.20) L 12/19/16 08:45 Hgb 9.4 g/dL (12.0-16.0) L 12/19/16 08:45 Hct 30.0 % (34.5-46.5) L 12/19/16 08:45 MCV 104.6 fl (80.0-100.0) H 12/19/16 08:45 MCH 32.7 pg (28.0-34.0) 12/19/16 08:45 MCHC 31.3 g/dL (30.0-36.0) 12/19/16 08:45 RDW 14.6 % (11.3-14.3) H 12/19/16 08:45 Plt Count 201 K/mm3 (130-400) 12/19/16 08:45 Neut % (Auto) 87.0 % (39.0-79.0) H 12/17/16 06:00 Lymph % (Auto) 9.6 % (16.0-50.0) L 12/17/16 06:00 [place] % (Auto) 1.3 % (0.0-11.0) 12/17/16 06:00 Eos % (Auto) 0.6 % (0.0-6.8) 12/17/16 06:00 Baso % (Auto) 0.7 (0.0-1.5) 12/17/16 06:00 Neut # (Auto) 9.8 # k/uL (1.4-7.7) H 12/17/16 06:00 Lymph # (Auto) 1.1 # k/uL (0.6-4.0) 12/17/16 06:00 [place] # (Auto) 0.1 # k/uL (0.0-0.9) 12/17/16 06:00 Eos # (Auto) 0.1 # k/uL (0.0-0.6) 12/17/16 06:00 Baso # (Auto) 0.1 # k/uL (0.0-0.5) 12/17/16 06:00 Seg Neutrophils % 84 % (39-79) H 12/19/16 08:45 Band Neutrophils % 5 % (0-12) 12/19/16 08:45 Lymphocytes % 10 % (16-50) L 12/19/16 08:45 Reactive Lymphs % 0.9 % (0.0-5.0) 12/17/16 06:00 Monocytes % 1 % (0-11) 12/19/16 08:45 Reactive Lymphs # 0.1 # k/uL (0.0-0.8) 12/17/16 06:00 Toxic Granulation Present 12/19/16 08:45 Plt Morphology Comment Normal (NORMAL) 12/19/16 08:45 Hypochromasia 1+ (NEGATIVE) H 12/19/16 08:45 Macrocytosis 1+ (NEGATIVE) H 12/19/16 08:45 RBC Morph Comment Abnormal (NORMAL) H 12/19/16 08:45 Sodium 151 mmol/L (136-145) H 12/19/16 08:45 Potassium 7.6 mmol/L (3.5-5.0) H* 12/19/16 08:45 Chloride 116 mmol/L (98-110) H 12/19/16 08:45 Carbon Dioxide 19 mmol/L (20-32) L 12/19/16 08:45 BUN 147 mg/dL (10-26) H 12/19/16 08:45 Creatinine 6.6 mg/dL (0.4-1.5) H 12/19/16 08:45 Estimated Creat Clear 6 12/19/16 08:45 Est GFR ( Amer) 8 (60-) L 12/19/16 08:45 Est GFR (Non-Af Amer) 6 (60-) L 12/19/16 08:45 Glucose 315 mg/dL (70-99) H 12/19/16 08:45 Calcium 8.6 mg/dL (8.5-10.5) 12/19/16 08:45 Total Bilirubin 0.2 mg/dL (0.2-1.2) 12/19/16 08:45 AST 35 U/L (0-41) 12/19/16 08:45 ALT 47 U/L (0-45) H 12/19/16 08:45 Alkaline Phosphatase 57 U/L (46-116) 12/19/16 08:45 NT-Pro-B Natriuret Pep 2658.1 pg/mL (15.0-450.0) H 12/15/16 14:10 Total Protein 6.3 g/dL (6.0-8.5) 12/19/16 08:45 Albumin 3.7 g/dL (3.0-5.5) 12/19/16 08:45 Urine Color Yellow (YELLOW) 12/15/16 14:20 Urine Appearance Clear (CLEAR) 12/15/16 14:20 Urine pH 5.5 (5.0 - 8.0) 12/15/16 14:20 Ur Specific [place] 1.020 (1.010-1.030) 12/15/16 14:20 Urine Protein 2+ mg/dL (NEGATIVE) H 12/15/16 14:20 Urine Ketones Negative mg/dL (NEGATIVE) 12/15/16 14:20 Urine Occult Blood 2+ (NEGATIVE) H 12/15/16 14:20 Urine Nitrite Negative (NEGATIVE) 12/15/16 14:20 Urine Bilirubin Negative (NEGATIVE) 12/15/16 14:20 Urine Urobilinogen 0.2 Eu (0.2-1.0) 12/15/16 14:20 Ur Leukocyte Esterase Negative (NEGATIVE) 12/15/16 14:20 Urine RBC 2-5 (0-2 HPF) H 12/15/16 14:20 Urine WBC 0-2 (0-5 HPF) 12/15/16 14:20 Ur Squamous Epith Cells Few (NEG-FEW) 12/15/16 14:20 Amorphous Sediment Few (NEGATIVE) H 12/15/16 14:20 Urine Bacteria Few (NEGATIVE) H 12/15/16 14:20 Urine Glucose Negative mg/dL (NEGATIVE) 12/15/16 14:20 Assessment/Plan - Assessment/Plan (1) Aspiration pneumonia due to food (regurgitated) Status: Acute Qualifiers: Lung location: unspecified part of lung Assessment: Now significant change, continue to require Nonrebreather mask (2) Alzheimer's dementia Status: Chronic Qualifiers: Alzheimer's disease onset: late-onset Dementia behavioral disturbance: without behavioral disturbance Qualified Code(s): G30.1 - Alzheimer's disease with late onset; F02.80 - Dementia in other diseases classified elsewhere without behavioral disturbance Assessment: stable (3) COPD exacerbation Status: Acute Assessment: stable (4) Hyperkalemia Status: Acute Assessment: no treatment per PA request
[2016-12-21] MEDS: SALINE FLUSH 10 ML DISP.SYRIN IV SCH (09:23)
[2016-12-21 14:44] VITALS: BP 109/43
--- NOTE | 2017-03-05 16:02 | Discharge Summary ---
Discharge Summary - Discharge Sumary History of Present Illness: Patient is an 81-year-old white female who resides at [facility]. Patient does have an states dementia. Patient does have a history of COPD. On the morning of admission patient was noted to have some sudden onset of increasing shortness of breath and pulmonary congestion. Patient had some audible course bronchitis. Patient was started on supplemental oxygen therapy. Patient NIGEL to continue to be in the low to mid 80 range. Patient appeared to be in respiratory distress and was subsequently admitted to the hospital for further care and evaluation. It was felt that the patient probably had an aspiration episode. Patient did seem to be doing well the evening before. Condition at Discharge: Home Medications: Ambulatory Orders Medication Instructions Recorded Acetaminophen [Tylenol] 650 mg PO Q4 05/03/12 Digoxin [Lanoxin] 125 mcg PO QD 05/03/12 Multivitamin [Bugs Bunny Vit Plus 1 each PO DAILY 05/03/12 Minerals] Bisacodyl [Dulcolax] 10 mg RC QD PRN 05/25/14 Blood Sugar Diagnostic, Drum 1 each MC BID 05/25/14 [Accu-Chek Compact Plus] Docusate Sodium [Colace] 1 cap PO BID 05/25/14 Ferrous Sulfate [Feosol] 325 mg PO BID 05/25/14 Insulin Glargine,Hum.rec.anlog 8 unit SQ HS 05/25/14 [Lantus] amLODIPine BESYLATE [Norvasc] 5 mg PO 0900 05/25/14 Aspirin [Adult Low Dose Aspirin EC] 81 mg PO 05/13/16 Divalproex Sodium [Depakote 125 mg PO BID 05/13/16 Sprinkle] Megestrol Acetate [Megace] 10 ml PO TID 05/13/16 Ipratropium/Albuterol Sulfate 3 ml NEB Q4 PRN ampul.neb 05/16/16 [Duoneb] Levofloxacin [Levaquin] 500 mg PO D #4 tablet 05/16/16 Magnesium Hydroxide [Milk of 2,400 mg PO BID unit dose cup 05/16/16 Magnesia] Ciprofloxacin HCl [Cipro] 500 mg PO BID #20 tablet 12/16/16 metroNIDAZOLE [Flagyl] 500 mg PO Q6H #30 tablet 12/16/16 Consultations this Visit: None Procedures this Visit: None Allergies/Adverse Reactions: Allergies Allergy/AdvReac Type Severity Reaction Status Date / Time Penicillins Allergy Intermediate Verified 05/25/14 12:45 aspirin Allergy Verified 05/25/14 12:45 Discharge Summary: Patient was felt to have a pneumonia with possible aspiration. Patient was subsequently started on Rocephin 1 g Q day and azithromycin 500 mg Q day. Patient was started on Solu-Medrol IV. Chest x-ray did show chronic interstitial changes along with a right hilar infiltrate. Patient initially showed some improvement however started to have some increasing respiratory distress. Patient had to be placed on a non-rebreather mask. After speaking with the patient family and Guardian and was elected to continue with IV antibiotic therapy and provide comfort measures. Patient's respiratory status continued to decline and patient . Patient initially was admitted with a hypernatremia. This did normalize with IV fluids. However patient redevelop the hypernatremia along with hyperkalemia. - Final Diagnosis (1) Aspiration pneumonia due to food (regurgitated) Problems: (2) Alzheimer's dementia Problems: (3) Hyperkalemia Problems: (4) Anemia Problems: (5) Atrial fibrillation Problems: (6) CRD (chronic renal disease), stage IV Problems: (7) Essential hypertension Problems:
== END 2016-12-21 14:57 | disposition expired | DRG 178 ==
LOC: SOUTH 13:24
PROVIDERS: ADMIT Family Medicine; ATTEND Family Medicine
DX: J69.0 Pneumonitis due to inhalation of food and vomit (principal); J44.1 Chronic obstructive pulmonary disease with (acute) exacerbation; N18.4 Chronic kidney disease, stage 4 (severe); I12.9 Hypertensive chronic kidney disease with stage 1 through stage 4 chronic kidney disease, or unspecified chronic kidney disease; E78.5 Hyperlipidemia, unspecified; G30.9 Alzheimer's disease, unspecified; F02.80 Dementia in other diseases classified elsewhere, unspecified severity, without behavioral disturbance, psychotic disturbance, mood disturbance, and anxiety; D64.9 Anemia, unspecified; I48.91 Unspecified atrial fibrillation
CPT/HCPCS: 36415; 36600; 71010; 80053; 81002; 83880; 85025; 87040; 94640; 94760; 99222; 99232; 99238; J0456; J0696; J1650; J1940; J2270; J2920; J7050; J1030; J7030; J7070; S1016